=== PATIENT | male | born 1940 | race Caucasian/White ===

== ENCOUNTER 2019-01-22 17:34 | Inpatient (IN) ==
[2019-01-22] MEDS ORDERED: IPRATROPIUM/ALBUTEROL 3 ML AMPUL.NEB NEB ONE (17:55)
--- NOTE | 2019-01-22 17:59 | Emergency Department Note ---
SOB HPI - General Chief Complaint: Shortness of Breath/Dyspnea Stated Complaint: SOB Time Seen by Provider: 01/22/19 17:38 Source: patient Mode of arrival: ambulatory Limitations: no limitations - History of Present Illness 78-year-old male patient presents to the emergency department with chief complaint of worsening dyspnea, left-sided chest pain, and productive cough. The patient was diagnosed with pneumonia on Friday (01/19) at urgent care. He was treated with azithromycin, prednisone, albuterol inhaler, and cough suppressants. He is supposed to be taking his final dose of azithromycin today. Today, he tells me his symptoms have profoundly worsened since being diagnosed. He had fevers up until yesterday. He denies any sinus congestion, runny nose, ear pain. He has a past history of atrial fibrillation but denies history of [place]. He denies retrosternal chest pain, palpitations, orthopnea, or PND. He denies respiratory history. He denies smoking. He admits to abdominal bloating. He denies overt abdominal pain, nausea, vomiting, or diarrhea. He admits to fatigue. He denies focal weakness. - Related Data Home Medications Medication Instructions Recorded Confirmed diphenhydrAMINE [Benadryl] 25 mg PO PRN PRN 09/01/15 01/22/19 traZODone HCL [Desyrel] 50 mg PO HS 09/01/15 01/22/19 acetylcarnitine HCl 250 mg capsule 500 mg PO BID 05/05/18 01/22/19 arginine (L-arginine) 500 mg 500 mg PO HS cap 05/05/18 01/22/19 capsule clonidine HCl 0.2 mg tablet 0.2 mg PO BID 05/05/18 01/22/19 coenzyme Q10 30 mg-Lcarnitine 250 1 cap PO HS cap 05/05/18 01/22/19 mg-vit C 12 mg-vit E 75 unit capsule epinephrine 0.3 mg/0.3 mL 0.3 mg IM ONCE PRN 05/05/18 01/22/19 injection, auto-injector glutamine 500 mg capsule 500 mg PO HS cap 05/05/18 01/22/19 nitroglycerin 0.4 mg sublingual 0.4 mg SUBLINGUAL Q5-15M PRN 05/05/18 01/22/19 tablet oxybutynin chloride 5 mg tablet 10 mg PO QDAY tab 05/05/18 01/22/19 citalopram 10 mg tablet 30 mg PO QDAY tab 05/20/18 01/22/19 gemfibrozil 600 mg tablet 300 mg PO BID tab 05/20/18 01/22/19 verapamil ER 240 mg 24 hr 240 mg PO BID 05/20/18 01/22/19 capsule,extended release famotidine 20 mg tablet 20 mg PO DAILYP PRN 07/07/18 01/22/19 lorazepam 0.5 mg tablet 0.5 mg PO TIDP PRN 07/07/18 01/22/19 labetalol 200 mg tablet 100 mg PO BID tab 07/15/18 01/22/19 Ascorbate Calcium [Vitamin C] 500 mg PO BID 01/22/19 01/22/19 Cyanocobalamin (Vitamin B-12) 2,500 mcg PO QAM 01/22/19 01/22/19 [Vitamin B12] Folic Acid 0.4 mg PO QAM 01/22/19 01/22/19 Potassium Chloride 3 cap PO BID 01/22/19 01/22/19 levOCARNitine TARTRATE 500 mg PO QPM 01/22/19 01/22/19 [l-Carnitine] Previous Rx's Medication Instructions Recorded ferrous sulfate 325 mg (65 mg 325 mg PO QDAY #90 tab 10/26/18 iron) tablet azithromycin 250 mg tablet See Rx Instructions PO .COMPLEX #6 01/19/19 tab Allergies Allergy/AdvReac Type Severity Reaction Status Date / Time morphine Allergy Severe Unknown Verified 01/22/19 17:34 Terazosin [From Hytrin] Allergy Unknown Palps & Verified 01/22/19 17:34 skipped beat amlodipine [From Norvasc] Allergy Unknown Verified 01/22/19 17:34 benazepril Allergy Unknown Verified 01/22/19 17:34 bisoprolol [From Ziac] Allergy Unknown Verified 01/22/19 17:34 diltiazem [From Cardizem] Allergy Unknown Verified 01/22/19 17:34 hydrochlorothiazide Allergy Unknown Verified 01/22/19 17:34 [From Ziac] simvastatin [From Zocor] Allergy Unknown Verified 01/22/19 17:34 mytran Allergy Mild Unknown Uncoded 08/12/18 14:06 Review of Systems All systems ED: reviewed and negative except as stated. Past Medical History - Past Medical History Medical history: Reports: atrial fibrillation, hypertension Family history: Reports: non-contributory - Social History smoking status: Former smoker Alcohol use: Reports: None Drug use: Reports: none Physical Exam Limitations: no limitations General appearance: alert, anxious, in distress (tachypnea. Able to speak in full complete sentences.) Head: atraumatic, normocephalic Eye: Present: normal appearance, PERRL, EOMI. Absent: scleral icterus, conjunctival injection ENT: normal oropharynx, mucous membranes moist Neck: Present: trachea midline. Absent: lymphadenopathy, thyromegaly Chest: Present: symmetric chest wall rise Respiratory: Present: respiratory distress, wheezes (bilateral lower chest extending to mid chest.), other (rhonchi to both lower lobes. E to A changes in left chest). Absent: accessory muscle use Location: dullness to percussion: Left, Lower Cardiovascular: Present: regular rate, normal rhythm, other. Absent: systolic murmur, diastolic murmur Abdominal: Present: soft, distention, hyperactive bowel sounds. Absent: tende rness, guarding, rebound, rigidity, organomegaly, mass Extremities: Present: full ROM. Absent: pedal edema, pretibial edema, calf tenderness Neurological: Present: alert, oriented X3, normal gait Psychiatric: Present: normal affect, normal mood Skin: Present: warm, dry Course Course Narrative: Patient is brought into the emergency department and a history and physical exam was performed. An IV was established and laboratory studies were drawn. Chest x-ray and EKG were ordered. Peak flows were initiated showing a significant decrease to his lung capacity. He was given a DuoNeb treatment. Afterward the patient continued to complain of profound shortness of breath with any form of movement. His repeat lung exam did show clearing to the upper lobes. Continuing rhonchi at the bases. EKG was reviewed showing no significant ST segment changes or evidence of ischemia/infarction. Chest x-ray was reviewed by the radiologist showing worsening bilateral opacities consistent with pneumonia diagnosis. During this time the patient's blood pressure was noted to be profoundly elevated at 230/110. He admits to not taking any of his blood pressure medications today. He was given labetalol 20 mg slow IV push. Afterward repeat blood pressure testing showed ongoing HTN at 201/116. He was then given labetalol 40 mg slow IV push. Reviewing his chemistry panel showed elevated BUNs/creatinine with a GFR 29. He was given thousand milliliters no rmal saline bolus. He was also given 750 mg of Levaquin +1 g Rocephin IV for antibiotic coverage. Repeat blood pressure testing showed a slight improvement to 196/110. I spoke to the hospitalist (Dr. Stevenson) about the patient's condition and need for admission. After reviewing all the factors He requested a pro calcitonin and assured me he would be down shortly for evaluation. During this time his blood pressure continued to be elevated so a second dose of labetalol 40 mg slow IV push was provided. Repeat blood pressure measurement showed ongoing elevation. Although, the patient is acutely ill, he remained stable throughout his entire time in the emergency department. The patient is now going to be admitted to the hospitalist service under the care of Dr. Stevenson. Vital Signs Temperature 99.0 F 01/22/19 17:34 Pulse Rate 100 H 01/22/19 17:34 Respiratory Rate 22 01/22/19 17:34 Blood Pressure 220/124 01/22/19 17:34 Pulse Oximetry (%) 93 01/22/19 17:34 Temperature 99.0 F 01/22/19 17:34 Pulse Rate 80 01/22/19 19:31 Respiratory Rate 26 H 01/22/19 19:31 Blood Pressure 191/113 01/22/19 19:31 Pulse Oximetry (%) 97 01/22/19 19:31 Shortness of Breath/Dyspnea - Lab Data Lab results reviewed: Yes I reviewed the patient's lab results. Result diagrams: 01/22/19 18:04 01/22/19 18:03 Lab Results 01/22/19 01/22/19 01/22/19 Range/Units 18:00 18:03 18:04 WBC 10.5 (4.5-11.0) K/mcL RBC 4.47 L (4.50-5.90) M/mcL Hgb 13.4 L (13.5-16.5) g/dL Hct 40.5 L (41.0-55.0) % MCV 90.5 (80.0-100.0) fL MCH 29.9 (26.0-34.0) pg MCHC 33.0 (31.0-36.0) g/dL RDW 13.8 (11.5-14.5) % Plt Count 208 (140-440) K/mcL MPV 10.9 H (7.4-10.4) fL Gran % 81.3 H (38.0-78.0) % Lymph % (Auto) 10.0 L (15.5-49.0) % Blanco % (Auto) 8.5 (1.0-12.0) % Eos % (Auto) 0.1 (0.0-7.0) % Baso % (Auto) 0.1 (0.0-2.0) % Gran # 8.5 H (1.8-8.0) K/mcL Lymph # (Auto) 1.0 L (1.5-4.8) K/mcL Blanco # (Auto) 0.9 (0.1-0.9) K/mcL Eos # (Auto) 0 (0.0-0.7) K/mcL Baso # (Auto) 0 (0.0-0.3) K/mcL Band Neutrophils % VBG Lactic Acid 1.1 (0.5-2.0) mmol/L Sodium 138 (133-145) mmol/L Potassium 4.3 (3.3-5.1) mmol/L Chloride 100 (96-108) mmol/L Carbon Dioxide 23 (22-30) mmol/L Anion Gap 15.0 (8-16) BUN 27 H (8-23) mg/dl Creatinine 2.1 H (0.7-1.2) mg/dl GFR Calculation 29 Glucose 83 (70-105) mg/dL Calcium 9.1 (8.6-10.4) mg/dl Total Bilirubin 0.3 (0.0-1.0) mg/dL AST 26 (0-37) U/l ALT 11 (0-40) U/l Alkaline Phosphatase 112 (39-117) U/L Troponin T (0-0.03) ng/ml Total Protein 6.6 (5.9-8.4) gm/dL Albumin 3.6 (3.2-5.2) gm/dL Globulin 3.0 (2.2-3.7) gm/dL Albumin/Globulin Ratio 1.2 (1.0-2.3) 05/03/19 05/03/19 Range/Units 18:04 18:05 WBC (4.5-11.0) K/mcL RBC (4.50-5.90) M/mcL Hgb (13.5-16.5) g/dL Hct (41.0-55.0) % MCV (80.0-100.0) fL MCH (26.0-34.0) pg MCHC (31.0-36.0) g/dL RDW (11.5-14.5) % Plt Count (140-440) K/mcL MPV (7.4-10.4) fL Gran % (38.0-78.0) % Lymph % (Auto) (15.5-49.0) % Blanco % (Auto) (1.0-12.0) % Eos % (Auto) (0.0-7.0) % Baso % (Auto) (0.0-2.0) % Gran # (1.8-8.0) K/mcL Lymph # (Auto) (1.5-4.8) K/mcL Blanco # (Auto) (0.1-0.9) K/mcL Eos # (Auto) (0.0-0.7) K/mcL Baso # (Auto) (0.0-0.3) K/mcL Band Neutrophils % Not Reportable VBG Lactic Acid (0.5-2.0) mmol/L Sodium (133-145) mmol/L Potassium (3.3-5.1) mmol/L Chloride (96-108) mmol/L Carbon Dioxide (22-30) mmol/L Anion Gap (8-16) BUN (8-23) mg/dl Creatinine (0.7-1.2) mg/dl GFR Calculation Glucose (70-105) mg/dL Calcium (8.6-10.4) mg/dl Total Bilirubin (0.0-1.0) mg/dL AST (0-37) U/l ALT (0-40) U/l Alkaline Phosphatase (39-117) U/L Troponin T 0.03 (0-0.03) ng/ml Total Protein (5.9-8.4) gm/dL Albumin (3.2-5.2) gm/dL Globulin (2.2-3.7) gm/dL Albumin/Globulin Ratio (1.0-2.3) - Radiology Data Radiology results reviewed: Yes I reviewed the patient's radiology results. - EKG Data EKG attestation: Yes I reviewed and interpreted this EKG. EKG results narrative: Twelve-lead EKG obtained showing a sinus rhythm at 97 bpm. No ectopy. LVH present. No ectopy. No ST segment changes. Disposition Pt seen by ALARM INVESTIGATOR/PA only: No (Pipelines Superintendent) Clinical Impression: Community acquired pneumonia Qualifiers: Laterality: left Lung location: lower lobe of lung Qualified Code(s): J18.1 - Lobar pneumonia, unspecified organism Disposition: Xfer As Inpt ([facility]) Condition: Fair Additional Instructions: Patient is being admitted to the hospital under the care of Dr. Stevenson (hospitalist). All follow on treatment decisions will be made by the hospitalist service at this time. Referrals: Estevan Carter MD [Primary Care Provider] - Time of Disposition: 20:39
--- NOTE | 2019-01-22 18:23 | XRay Report ---
INDICATION: Pneumonia TECHNIQUE: PA and lateral upright chest x-ray COMPARISON: Previous chest x-rays dated 04/11/2016 and 01/19/2019 FINDINGS:There are bilateral pulmonary parenchymal infiltrates which are worse than on 01/19/2019. Is no dense consolidation. Appearance remains consistent with pneumonia. Findings are not typical of congestive heart failure. There is no pleural fluid. No change in heart size. IMPRESSION: 1. Increasing bilateral pulmonary parenchymal infiltrates. 2. Findings are consistent with pneumonia Interpreted and Authenticated by: Danyel Gorman 01/22/19
[2019-01-22] MEDS ORDERED: LABETALOL 5 MG/ML ML IV ONE ×4 (18:30→21:10)
[2019-01-22 18:40] LABS: Basophils # (Auto) 0 K/mcL (0.0-0.3); Basophils % (Auto) 0.1 % (0.0-2.0); Eosinophils # (Auto) 0 K/mcL (0.0-0.7); Eosinophils % (Auto) 0.1 % (0.0-7.0); Granulocytes % (Auto) 81.3 % (38.0-78.0); Mean Cell Volume 90.5 fL (80.0-100.0); Monocytes # (Auto) 0.9 K/mcL (0.1-0.9); Monocytes % (Auto) 8.5 % (1.0-12.0); Platelet Count 208 K/mcL (140-440); RBC 4.47 M/mcL (4.50-5.90); Red Cell Distribution Width 13.8 % (11.5-14.5)
[2019-01-22] MEDS ORDERED: LEVOFLOXACIN 750 MG/150 ML BAG IV ONE (18:54)
[2019-01-22] MEDS ORDERED: cefTRIAXone 1 GM VIAL IV ONE (18:54)
[2019-01-22 19:02] LABS: ALT/SGPT 11 U/l (0-40); Albumin 3.6 gm/dL (3.2-5.2); Albumin/Globulin Ratio 1.2 (1.0-2.3); Alkaline Phosphatase 112 U/L (39-117); Blood Urea Nitrogen 27 mg/dl (8-23)
[2019-01-22] MEDS ORDERED: 0.9 % SODIUM CHLORIDE 1,000 ML IV ONE (19:10)
--- NOTE | 2019-01-22 20:22 | Internal Med History&Physical ---
Medical - H&P: HPI Patient information: Note initiated : 01/22/19 at 8:17 pm Service Date, if different from initiated Date: [] Patient: Kaden Romero a 78 y/o M admitted on for Shortness of breath. Chief Complaint: [] History of present illness: Mr. Romero is a 78 year old M Presents to the ED with continued cough and shortness of breath. Patient was seen in minor care on the and diagnosed with left-sided pneu monia and was given azithromycin and prednisone bronchodilators. He states that it took a couple days and then he started to feel better. However, last night he started having increased cough again with increased shortness of breath and was very short of breath this morning. Patient says he had sick contacts about a week ago. The symptoms that brought him into the minor care included shortness of breath pleuritic chest pain on the left side both with coughing and with deep breathing. He had productive cough of yellow sputum any fevers or chills. As per his admission the symptoms started improve and then the symptoms got dramatically worse last night. His says he has a wheezy cough as well as productive. He feels very weak. Feels like he cannot take a deep breath because of the pleuritic chest pain. Has a headache as well. Opponent and EKG done in the ED without any acute changes. Chest x-ray with infiltrates interstitial concerning for pneumonia. No effusions or heart enlargement. He is found to be quite hypertensive with systolic of 220/120. He states he did not take his labetalol this morning because his heart rate was running fast and he thought labetalol made it worse. He did take his verapamil and was clonidine. He states he does have a history of atrial fibrillation and is on verapamil but is never been talked about anticoagulation. He is in sinus rhythm here. He says the breathing treatments in the ED gave him only a little bit of improvement. ABG showed a PaO2 of 50. Lactate was okay. No history of COPD. Review of Systems: Pertinent positives as above. Denies nausea/vomiting/abdominal pain/diarrhea. Remaining 10 point review of system reviewed negative Medical - H&P: PMH Medical history: Medical History (Last Reviewed 01/19/19 @ 12:47 by Miguel Thorpe PA-C) Personal history of other diseases of the circulatory system (Chronic) Internal hemorrhoids with complication (Chronic) Urge incontinence (Chronic) Chronic foot pain (Chronic) Peripheral edema (Chronic) Depression (Chronic) Seborrheic keratosis (Chronic) Lentigo (Chronic) Hemangioma (Chronic) Actinic keratosis (Chronic) Seborrheic dermatitis (Chronic) Atopic dermatitis (Chronic) History of tobacco use (Chronic) Arthritis (Chronic) Restless leg syndrome (Chronic) Other instability, left ankle (Chronic) Other instability, right ankle (Chronic) Other instability, right foot (Chronic) Male urinary stress incontinence (Chronic) Balanitis (Chronic) Prostate CA (Chronic) Hyperlipidemia (Chronic) Edema (Chronic) History of adenocarcinoma of prostate (Chronic) Palpitations (Chronic) Paroxysmal supraventricular tachycardia (Chronic) Hypertensive heart disease (Chronic) Hypertension (Chronic) Chest discomfort (Chronic) Dissection of aortic arch (Chronic) Dehiscence of incision (Acute) History of EKG (Chronic ~03/03/18) History of echocardiogram (Chronic ~2009) History of melanoma (Chronic) History of skin cancer (Chronic) Past Surgical History (Last Reviewed 01/19/19 @ 12:47 by Miguel Thorpe PA-C) H/O left inguinal hernia repair (Chronic) H/O radical prostatectomy (Chronic ~2008) History of prostatectomy (Chronic) Family History (Last Reviewed 01/19/19 @ 12:47 by Miguel Thorpe PA-C) Father CAD (coronary artery disease) Mother CAD (coronary artery disease) Brother No known health problems Brother Cancer Sister CVA (cerebral vascular accident) Sister Cancer Sister No known health problems Social History (Last Updated 01/19/19 @ 12:51 by Miguel Thorpe PA-C) Quit smoking in the early Drinks alcohol rarely Lives at home with his Medical - H&P: Meds Home Medications Medication Instructions Recorded Confirmed Type diphenhydrAMINE [Benadryl] 25 mg PO PRN PRN 09/01/15 01/22/19 History traZODone HCL [Desyrel] 50 mg PO HS 09/01/15 01/22/19 History acetylcarnitine HCl 250 mg capsule 500 mg PO BID 05/05/18 01/22/19 History arginine (L-arginine) 500 mg 500 mg PO HS cap 05/05/18 01/22/19 History capsule clonidine HCl 0.2 mg tablet 0.2 mg PO BID 05/05/18 01/22/19 History coenzyme Q10 30 mg-Lcarnitine 250 1 cap PO HS cap 05/05/18 01/22/19 History mg-vit C 12 mg-vit E 75 unit capsule epinephrine 0.3 mg/0.3 mL 0.3 mg IM ONCE PRN 05/05/18 01/22/19 History injection, auto-injector glutamine 500 mg capsule 500 mg PO HS cap 05/05/18 01/22/19 History nitroglycerin 0.4 mg sublingual 0.4 mg SUBLINGUAL Q5-15M PRN 05/05/18 01/22/19 History tablet oxybutynin chloride 5 mg tablet 10 mg PO QDAY tab 05/05/18 01/22/19 History citalopram 10 mg tablet 30 mg PO QDAY tab 05/20/18 01/22/19 History gemfibrozil 600 mg tablet 300 mg PO BID tab 05/20/18 01/22/19 History verapamil ER 240 mg 24 hr 240 mg PO BID 05/20/18 01/22/19 History capsule,extended release famotidine 20 mg tablet 20 mg PO DAILYP PRN 07/07/18 01/22/19 History lorazepam 0.5 mg tablet 0.5 mg PO TIDP PRN 07/07/18 01/22/19 History labetalol 200 mg tablet 100 mg PO BID tab 07/15/18 01/22/19 History ferrous sulfate 325 mg (65 mg 325 mg PO QDAY #90 tab 10/26/18 01/22/19 Rx iron) tablet azithromycin 250 mg tablet See Rx Instructions PO .COMPLEX #6 01/19/19 01/22/19 Rx tab Ascorbate Calcium [Vitamin C] 500 mg PO BID 01/22/19 01/22/19 History Cyanocobalamin (Vitamin B-12) 2,500 mcg PO QAM 01/22/19 01/22/19 History [Vitamin B12] Folic Acid 0.4 mg PO QAM 01/22/19 01/22/19 History Potassium Chloride 3 cap PO BID 01/22/19 01/22/19 History levOCARNitine TARTRATE 500 mg PO QPM 01/22/19 01/22/19 History [l-Carnitine] Allergies Allergy/AdvReac Type Severity Reaction Status Date / Time morphine Allergy Severe Unknown Verified 01/22/19 17:34 Terazosin [From Hytrin] Allergy Unknown Palps & Verified 01/22/19 17:34 skipped beat amlodipine [From Norvasc] Allergy Unknown Verified 01/22/19 17:34 benazepril Allergy Unknown Verified 01/22/19 17:34 bisoprolol [From Ziac] Allergy Unknown Verified 01/22/19 17:34 diltiazem [From Cardizem] Allergy Unknown Verified 01/22/19 17:34 hydrochlorothiazide Allergy Unknown Verified 01/22/19 17:34 [From Ziac] simvastatin [From Zocor] Allergy Unknown Verified 01/22/19 17:34 mytran Allergy Mild Unknown Uncoded 08/12/18 14:06 Medical - H&P: Exam - Constitutional Vitals: Temp Pulse Resp BP Pulse Ox 99.0 F 80 26 H 191/113 97 01/22/19 17:34 01/22/19 19:31 01/22/19 19:31 01/22/19 19:31 01/22/19 19:31 Exam: General: Alert, Awake, No acute Distress Eyes/N/T: EOMI, PEERL, DMM Head/Neck: neck supple, normocephalic atraumatic CV: RRR, 2/6 SM Pulm: b/l rhonchi, mild bilateral wheeze Abd: soft, nontender, +BS x4 Ext: no clubbing/cyanosis, trace-1+ b/l LE edema Neuro: Alert, no focal deficits, moves all extremities, CN 2-12 grossly intact, symmetrical strength b/l upper/lower, sensations intact b/l upper/lower Skin: warm/dry Medical - H&P: Reslt - Labs CBC & Chem 7: 01/22/19 18:04 01/22/19 18:03 Labs: Short CBC 01/22/19 Range/Units 18:04 WBC 10.5 (4.5-11.0) K/mcL Hgb 13.4 L (13.5-16.5) g/dL Hct 40.5 L (41.0-55.0) % Plt Count 208 (140-440) K/mcL BMP 01/22/19 18:03 Sodium 138 Potassium 4.3 Chloride 100 Carbon Dioxide 23 BUN 27 H Creatinine 2.1 H Glucose 83 Calcium 9.1 Cardiac Enzymes 01/22/19 Range/Units 18:04 Troponin T 0.03 (0-0.03) ng/ml Liver Function 01/22/19 Range/Units 18:03 Total Bilirubin 0.3 (0.0-1.0) mg/dL AST 26 (0-37) U/l ALT 11 (0-40) U/l Alkaline Phosphatase 112 (39-117) U/L Albumin 3.6 (3.2-5.2) gm/dL - Impressions Chest x-ray with interstitial infiltrates Medical - H&P: A/P - Narrative A/P Narrative: A: *Pneumonia, atypical: Failed outpatient abx -mild bandemia *Acute hypoxic respiratory failure: *Hypertensive urgency: Did miss one of his blood pressure medications today -home meds include labetalol/clonidine/verapamil *CKD IIIb-IV: * *Depression/anxiety: *GERD: * P: -IV abx -pending SC -pending Myco/Strep/resp viral panel -cont home BP meds and prn IV -prn nebs, prednisone -MRSA screen - -pt/ot -ppx: Heparin Full code
[2019-01-22 20:34] LABS: Band Neutrophils % 12 % (0-10); Lymphocytes % 12 % (15-49); Monocytes % (Manual) 6 % (1-12); Platelet Estimate NORMAL (NORMAL); RBC Morphology NORMAL (NORMAL); Segmented Neutrophils % 69 % (38-78)
[2019-01-22] MEDS ORDERED: VERAPAMIL 120 MG TAB.XL.24H PO SCH (21:00)
[2019-01-22] MEDS ORDERED: IPRATROPIUM/ALBUTEROL 3 ML AMPUL.NEB NEB PRN (21:10)
[2019-01-22] MEDS ORDERED: NITROGLYCERIN 0.4 MG TAB.SUBL SL PRN (21:10)
[2019-01-22] MEDS ORDERED: METOCLOPRAMIDE 10 MG/2 ML VIAL IV PRN (21:10)
[2019-01-22] MEDS ORDERED: [UNRECOGNIZED DRUG - OTHER] PO SCH (21:10)
[2019-01-22] MEDS ORDERED: cloNIDine HCL 0.1 MG TABLET PO PRN (21:10)
[2019-01-22] MEDS ORDERED: LACTULOSE 20 GM/30 ML ORAL.SOL PO PRN (21:10)
[2019-01-22] MEDS ORDERED: POLYETHYLENE GLYCOL 3350 17 GM PACKET PO PRN (21:10)
[2019-01-22] MEDS ORDERED: PROMETHAZINE 25 MG TABLET PO PRN (21:10)
[2019-01-22] MEDS ORDERED: diphenhydrAMINE 25 MG CAPSULE PO PRN (21:10)
[2019-01-22] MEDS ORDERED: POTASSIUM CHLORIDE 20 MEQ TABLET PO PRN ×2 (21:10)
[2019-01-22] MEDS ORDERED: ARGININE 500 MG PO SCH (21:10)
[2019-01-22] MEDS ORDERED: POTASSIUM CHLORIDE 40 MEQ in DEXTROSE 5% IN WATER 500 ML IV PRN (21:10)
[2019-01-22] MEDS ORDERED: SENNOSIDES 1 TABLET PO PRN (21:10)
[2019-01-22] MEDS ORDERED: MAGNESIUM SULFATE 2 GM/50 ML BAG IV PRN (21:10)
[2019-01-22] MEDS ORDERED: ONDANSETRON 4 MG/2 ML VIAL IV PRN (21:10)
[2019-01-22] MEDS: DOCUSATE SODIUM 100 MG CAPSULE PO SCH (22:06)
[2019-01-22] MEDS: cloNIDine HCL 0.1 MG TABLET PO SCH (22:06)
[2019-01-22] MEDS: GEMFIBROZIL 600 MG TABLET PO SCH (22:06)
[2019-01-22] MEDS: LABETALOL 100 MG TABLET PO SCH (22:06)
[2019-01-22] MEDS: LORazepam 0.5 MG TABLET PO PRN (22:07)
[2019-01-22] MEDS: FAMOTIDINE 20 MG TABLET PO SCH (22:07)
[2019-01-22] MEDS: traZODone HCL 50 MG TABLET PO SCH (22:07)
[2019-01-22] MEDS: predniSONE 20 MG TABLET PO SCH (22:09)
[2019-01-22] MEDS: 0.9 % SODIUM CHLORIDE 10 ML SYRINGE IV SCH (22:19)
[2019-01-22 22:33] LABS: Appearance,Urine CLEAR; Bacteria,Urine 0 /hpf (0); Bilirubin,Urine NEG (NEG); Color,Urine YELLOW; Glucose,Urine (UA) NEGATIVE (NEG); Leukocyte Esterase,Urine NEG /uL (NEG); Protein,Urine 100 mg/dL (NEG); Specific Gravity,Urine 1.013 (1.000-1.035); Urine Blood NEG mg/dL (<0.03); Urine Hyaline Cast 1 /lpf (0-2); Urine RBC < 1 /hpf (0-1); Urine Squamous Epithelial Cell < 1 /hpf (0-4); Urine WBC < 1 /hpf (0-4); Urobilinogen,Urine NEG (NEG)
[2019-01-23] MEDS: ACETAMINOPHEN 325 MG TABLET PO PRN ×3 (00:47→18:22)
[2019-01-23 05:41] LABS: Basophils # (Auto) 0 K/mcL (0.0-0.3); Basophils % (Auto) 0 % (0.0-2.0); Eosinophils # (Auto) 0 K/mcL (0.0-0.7); Eosinophils % (Auto) 0 % (0.0-7.0); Granulocytes % (Auto) 89.8 % (38.0-78.0); Lymphocytes # (Auto) 0.5 K/mcL (1.5-4.8); Lymphocytes % (Auto) 6.8 % (15.5-49.0); Mean Cell Volume 89.9 fL (80.0-100.0); Mean Corpuscular HGB Conc 33.6 g/dL (31.0-36.0); Monocytes # (Auto) 0.3 K/mcL (0.1-0.9); Monocytes % (Auto) 3.4 % (1.0-12.0); Platelet Count 171 K/mcL (140-440); RBC 3.87 M/mcL (4.50-5.90); Red Cell Distribution Width 13.7 % (11.5-14.5)
[2019-01-23] MEDS: 0.9 % SODIUM CHLORIDE 10 ML SYRINGE IV SCH ×3 (05:43→21:39)
[2019-01-23 05:52] LABS: ALT/SGPT 9 U/l (0-40); Albumin/Globulin Ratio 1.2 (1.0-2.3); Alkaline Phosphatase 95 U/L (39-117); Bilirubin,Direct < 0.2 mg/dL (0.0-0.3); Blood Urea Nitrogen 29 mg/dl (8-23); Gamma Glutamyl Transpeptidase 21 U/L (8-61); Uric Acid 5.6 mg/dL (2.5-8.0)
--- NOTE | 2019-01-23 07:50 | Emergency Department Note ---
ED Note Addendum Note Addendum: I discussed this case with the mid-level provider and agree with the assessment and plan.
--- NOTE | 2019-01-23 08:06 | Internal Med Progress Note ---
Medical - PN: Subj Patient information: Note initiated : 01/23/19 at 7:58 am Service Date, if different from initiated Date: [] Patient: Kaden Romero 78 y/o M admitted on 01/22/19 for Shortness of breath. Chief Complaint: [] Interval history: Mr. Romero is a 78 year old M Presents to the ED with continued cough and shortness of breath. Patient was seen in minor care on the and diagnosed with left-sided pneum onia and was given azithromycin and prednisone bronchodilators. He states that it took a couple days and then he started to feel better. However, last night he started having increased cough again with increased shortness of breath and was very short of breath this morning. Patient says he had sick contacts about a week ago. The symptoms that brought him into the minor care included shortness of breath pleuritic chest pain on the left side both with coughing and with deep breathing. He had productive cough of yellow sputum any fevers or chills. As per his admission the symptoms started improve and then the symptoms got dramatically worse last night. His says he has a wheezy cough as well as productive. He feels very weak. Feels like he cannot take a deep breath because of the pleuritic chest pain. Has a headache as well. Opponent and EKG done in the ED without any acute changes. Chest x-ray with infiltrates interstitial concerning for pneumonia. No effusions or heart enlargement. He is found to be quite hypertensive with systolic of 220/120. He states he did not take his labetalol this morning because his heart rate was running fast and he thought labetalol made it worse. He did take his verapamil and was clonidine. He states he does have a history of atrial fibrillation and is on verapamil but is never been talked about anticoagulation. He is in sinus rhythm here. He says the breathing treatments in the ED gave him only a little bit of improvement. ABG showed a PaO2 of 50. Lactate was okay. No history of COPD. 01/23 Patient had a difficult time getting to sleep because of cough but eventually fell asleep and slept well. Feeling better today. Less shortness of breath and improved cough. Pleuritic chest pain improving. No new complaints. Review of Systems: denies headache/fever/chills/nausea/vomiting/abdominal pain/diarrhea. Otherwise see above. - Constitutional Vitals: Vital Signs Temp Pulse Resp BP Pulse Ox 98.8 F 80 17 140/71 93 01/23/19 03:55 01/22/19 20:55 01/23/19 03:55 01/23/19 03:55 01/23/19 03:55 Period Temp Pulse Resp BP Sys/Thacker Pulse Ox Last 24 Hr 98.2 F-99.0 F 79-101 17-34 140-230/71-149 91-98 Intake and Output 01/22/19 01/23/19 01/23/19 21:59 05:59 13:59 Intake Total 1510 Output Total 200 426 Balance 1310 -426 Weight 87.317 kg Intake & Output: Intake & Output 01/22/19 01/23/19 01/23/19 21:59 05:59 13:59 Intake Total 1510 Output Total 200 426 Balance 1310 -426 Weight 87.317 kg Intake: IV 1150 Sodium Chloride 0.9% 1,000 ml @ 1000 Wide Open IV BOLUS ONE Rx#: [id number] Oral 360 Output: Void Amount 200 425 # of times incontinent of urine 1 Other: Meal deion crackers & apple sauce Percent of Meal Consumed 100% Feeding Ability Independent Urine Appearance Clear Urine Color Bright Yellow Exam: General: Alert, Awake, No acute Distress Eyes/N/T: EOMI, Head/Neck: neck supple, CV: RRR, 2/6 SM Pulm: b/l rhonchi improving, no wheezing Abd: soft, nontender, +BS x4 Ext: no clubbing/cyanosis, trace-1+ b/l LE edema Neuro: Alert, no focal deficits, moves all extremities, Skin: warm/dry Medical - PN: Obj Da - Labs CBC & Chem 7: 01/23/19 04:25 01/23/19 04:25 Labs: Abnormal Lab Results 01/23/19 01/23/19 01/22/19 04:25 04:25 21:45 RBC 3.87 L Hgb 11.7 L Hct 34.8 L MPV 10.8 H Gran % 89.8 H Lymph % (Auto) 6.8 L Gran # Lymph # (Auto) 0.5 L Band Neutrophils % Lymphocytes % BUN 29 H Creatinine 2.1 H Glucose 112 H Calcium 8.2 L Lactate Dehydrogenase 256 H C-Reactive Protein Total Protein 5.6 L Albumin 3.0 L Urine Protein 100 A 01/22/19 01/22/19 01/22/19 18:05 18:04 18:03 RBC 4.47 L Hgb 13.4 L Hct 40.5 L MPV 10.9 H Gran % 81.3 H Lymph % (Auto) 10.0 L Gran # 8.5 H Lymph # (Auto) 1.0 L Band Neutrophils % 12 H Lymphocytes % 12 L BUN Creatinine Glucose Calcium Lactate Dehydrogenase C-Reactive Protein 2.5 H Total Protein Albumin Urine Protein 01/22/19 18:03 RBC Hgb Hct MPV Gran % Lymph % (Auto) Gran # Lymph # (Auto) Band Neutrophils % Lymphocytes % BUN 27 H Creatinine 2.1 H Glucose Calcium Lactate Dehydrogenase C-Reactive Protein Total Protein Albumin Urine Protein Meds: Medications Acetaminophen (Tylenol) 650 mg PO Q6HP PRN PRN Reason: PAIN/FEVER > 101 Last Admin: 01/23/19 00:47 Dose: 650 mg Documented by: Albuterol/Ipratropium (Duoneb) 3 ml NEB Q4HP PRN PRN Reason: Shortness Of Breath Citalopram Hydrobromide (Celexa) 20 mg PO DAILY [facility] Clonidine HCl (Catapres) 0.1 mg PO Q8HP PRN PRN Reason: Hypertension SBP>150 Clonidine HCl (Catapres) 0.2 mg PO BID [facility] Last Admin: 01/22/19 22:06 Dose: 0.2 mg Documented by: Diphenhydramine HCl (Benadryl) 25 mg PO PRN PRN PRN Reason: Allergic Reaction Docusate Sodium (Colace) 100 mg PO BID [facility] Last Admin: 01/22/19 22:06 Dose: Not Given Documented by: Famotidine (Pepcid) 20 mg PO HS [facility] Last Admin: 01/22/19 22:07 Dose: 20 mg Documented by: Gemfibrozil (Lopid) 150 mg PO BID [facility] Last Admin: 01/22/19 22:06 Dose: 150 mg Documented by: Heparin Sodium (Porcine) (Heparin) 5,000 unit SQ Q12 [facility] Hydralazine HCl (Apresoline) 0 mg IV Q4-6HP PRN PRN Reason: Hypertension Potassium Chloride 40 meq/ (Dextrose) 520 mls @ 130 mls/hr IV UD PRN PRN Reason: Potassium < 3 Levofloxacin (Levaquin) 750 mg in 150 mls @ 100 mls/hr IV Q48H [facility]; Protocol Magnesium Sulfate (Magnesium Sulfate) 2 gm in 50 mls @ 50 mls/hr IV UD PRN PRN Reason: Magnesium </= 1.6 Labetalol HCl (Trandate) 100 mg PO BID [facility] Last Admin: 01/22/19 22:06 Dose: 100 mg Documented by: Labetalol HCl (Trandate) 0 mg IV Q2HP PRN PRN Reason: INCREASED HEART RATE Lactulose (Cephulac) 10 gm PO DAILYP PRN PRN Reason: Constipation Lorazepam (Ativan) 0.5 mg PO TIDP PRN PRN Reason: Anxiety Last Admin: 01/22/19 22:07 Dose: 0.5 mg Documented by: Nitroglycerin (Nitrostat) 0.4 mg SL Q15MIN PRN PRN Reason: Chest Pain Ondansetron HCl (Zofran) 4 mg IV Q4HP PRN PRN Reason: Nausea And Vomiting Oxybutynin Chloride (Ditropan) 10 mg PO QDAY [facility] Polyethylene Glycol (Miralax) 17 gm PO DAILYP PRN PRN Reason: Constipation Potassium Chloride (Kdur) 40 meq PO UD PRN PRN Reason: Potssium is 3-3.5 Potassium Chloride (Kdur) 40 meq PO UD PRN PRN Reason: Potassium < 3 Prednisone (Prednisone) 40 mg PO [facility] Stop: 01/26/19 08:01 Last Admin: 01/22/19 22:09 Dose: 40 mg Documented by: Promethazine HCl (Phenergan) 0 mg PO Q6HP PRN PRN Reason: Nausea And Vomiting Senna (Senokot) 2 tab PO HSP PRN PRN Reason: Constipation Sodium Chloride (Saline Flush) 10 ml IV Q8 [facility] Last Admin: 01/23/19 05:43 Dose: 10 ml Documented by: Trazodone HCl (Desyrel) 50 mg PO [facility] Last Admin: 01/22/19 22:07 Dose: 50 mg Documented by: Verapamil HCl (Calan Sr) 240 mg PO [facility] Last Admin: 01/22/19 22:05 Dose: 240 mg Documented by: Verapamil HCl (Calan Sr) 120 mg PO DAILY [facility] Medical - PN: A/P - Time Spent With Patient Total time spent is greater than 50% in coordination of care (as documented) at patient's floor/unit and/or counseling patient: - Narrative A/P Narrative: A: *Pneumonia, atypical vs likely Viral PNA: Failed outpatient abx. (+) Human Metapneumovirus -mild bandemia -myco/strep neg *Acute hypoxic respiratory failure: -on 2L NC *Hypertensive urgency: Did miss one of his blood pressure medications today -home meds include labetalol/clonidine/verapamil *CKD IIIb-IV: *Depression/anxiety: *GERD: * P: -IV abx, pending SC -wean off/down O2 -IS/Acapella, prn nebs -prednisone -cont home BP meds and prn IV - -pt/ot -ppx: Heparin Full code Medical - PN: Qual - VTE Deep Vein Thrombosis/Pulmonary Embolism Present on Admission: No
[2019-01-23] MEDS: predniSONE 20 MG TABLET PO SCH (08:19)
[2019-01-23] MEDS: DOCUSATE SODIUM 100 MG CAPSULE PO SCH ×2 (08:19→21:33)
[2019-01-23] MEDS: LABETALOL 100 MG TABLET PO SCH (08:19)
[2019-01-23] MEDS: cloNIDine HCL 0.1 MG TABLET PO SCH ×2 (08:23→21:34)
[2019-01-23] MEDS: CITALOPRAM 20 MG TABLET PO SCH (08:24)
[2019-01-23] MEDS: GEMFIBROZIL 600 MG TABLET PO SCH ×2 (08:25→21:31)
[2019-01-23] MEDS: HEPARIN 5,000 UNIT/ML VIAL SQ SCH ×2 (08:25→21:33)
[2019-01-23] MEDS: hydrALAZINE 20 MG/ML VIAL IV PRN ×2 (08:30→16:50)
[2019-01-23] MEDS ORDERED: VERAPAMIL 120 MG TAB.XL.24H PO SCH (09:00)
[2019-01-23] MEDS ORDERED: VERAPAMIL 120 MG TAB.XL.24H PO ONE (10:15)
[2019-01-23] MEDS ORDERED: LABETALOL 100 MG TABLET PO ONE (10:15)
[2019-01-23] MEDS: OXYBUTYNIN CHLORIDE 5 MG TAB.XL.24H PO SCH (10:53)
[2019-01-23] MEDS: LORazepam 0.5 MG TABLET PO PRN (18:34)
[2019-01-23] MEDS ORDERED: CALCIUM CARBONATE 500 MG TAB.CHEW CHEWED PRN (18:46)
[2019-01-23] MEDS ORDERED: PHENobarb/HYOSCY/ATROPINE/SCOP 1 DOSE BOTTLE PO ONE (18:47)
[2019-01-23] MEDS ORDERED: LABETALOL 100 MG TABLET PO SCH (21:00)
[2019-01-23] MEDS: traZODone HCL 50 MG TABLET PO SCH (21:33)
[2019-01-23] MEDS: FAMOTIDINE 20 MG TABLET PO SCH (21:34)
[2019-01-24] MEDS: hydrALAZINE 20 MG/ML VIAL IV PRN ×3 (00:47→07:01)
[2019-01-24] MEDS: LABETALOL 5 MG/ML ML IV PRN ×3 (02:50→16:14)
[2019-01-24 05:12] LABS: Mean Cell Volume 90.1 fL (80.0-100.0); Mean Corpuscular HGB Conc 33.6 g/dL (31.0-36.0); Platelet Count 179 K/mcL (140-440); RBC 3.69 M/mcL (4.50-5.90); Red Cell Distribution Width 13.7 % (11.5-14.5)
[2019-01-24 05:28] LABS: ALT/SGPT 10 U/l (0-40); Albumin 2.8 gm/dL (3.2-5.2); Albumin/Globulin Ratio 1.2 (1.0-2.3); Alkaline Phosphatase 79 U/L (39-117); Bilirubin,Direct < 0.2 mg/dL (0.0-0.3); Blood Urea Nitrogen 39 mg/dl (8-23); Gamma Glutamyl Transpeptidase 20 U/L (8-61); Uric Acid 6.4 mg/dL (2.5-8.0)
[2019-01-24] MEDS: 0.9 % SODIUM CHLORIDE 10 ML SYRINGE IV SCH ×2 (05:36→16:11)
[2019-01-24 06:09] LABS: Lymphocytes % 9 % (15-49); Monocytes % (Manual) 5 % (1-12); Platelet Estimate NORMAL (NORMAL); RBC Morphology NORMAL (NORMAL); Segmented Neutrophils % 86 % (38-78)
[2019-01-24] MEDS: LORazepam 0.5 MG TABLET PO PRN (06:30)
[2019-01-24] MEDS: ACETAMINOPHEN 325 MG TABLET PO PRN (06:30)
--- NOTE | 2019-01-24 06:33 | XRay Report ---
INDICATION: Follow-up pneumonia TECHNIQUE: AP chest x-ray,portable semiupright COMPARISON: Previous examinations dated 01/22/2019 and 01/19/2019 FINDINGS:Bilateral pulmonary parenchymal infiltrates. Infiltrates are diffuse. These are more diffuse than on previous examinations. No focal consolidation. Findings are consistent with pneumonia. Atypical pneumonia should be considered There is mild cardiomegaly. Pulmonary vascularity is not distended apical redistribution to indicate pulmonary congestion and pulmonary edema. Infiltrates are probably secondary to pneumonia. Clinical correlation and continued follow-up recommended. No evidence for pleural effusion IMPRESSION: 1. Diffuse pulmonary parenchymal infiltrates consistent with pneumonia 2. Mild cardiomegaly Interpreted and Authenticated by: Danyel Groman 01/24/19
--- NOTE | 2019-01-24 07:44 | Internal Med Progress Note ---
Medical - PN: Subj Patient information: Note initiated : 01/24/19 at 7:36 am Service Date, if different from initiated Date: [] Patient: Kaden Romero 78 y/o M admitted on 01/22/19 for Shortness of breath. Chief Complaint: [] Interval history: Mr. Romero is a 78 year old M Presents to the ED with continued cough and shortness of breath. Patient was seen in minor care on the and diagnosed with left-sided pneum onia and was given azithromycin and prednisone bronchodilators. He states that it took a couple days and then he started to feel better. However, last night he started having increased cough again with increased shortness of breath and was very short of breath this morning. Patient says he had sick contacts about a week ago. The symptoms that brought him into the minor care included shortness of breath pleuritic chest pain on the left side both with coughing and with deep breathing. He had productive cough of yellow sputum any fevers or chills. As per his admission the symptoms started improve and then the symptoms got dramatically worse last night. His says he has a wheezy cough as well as productive. He feels very weak. Feels like he cannot take a deep breath because of the pleuritic chest pain. Has a headache as well. Opponent and EKG done in the ED without any acute changes. Chest x-ray with infiltrates interstitial concerning for pneumonia. No effusions or heart enlargement. He is found to be quite hypertensive with systolic of 220/120. He states he did not take his labetalol this morning because his heart rate was running fast and he thought labetalol made it worse. He did take his verapamil and was clonidine. He states he does have a history of atrial fibrillation and is on verapamil but is never been talked about anticoagulation. He is in sinus rhythm here. He says the breathing treatments in the ED gave him only a little bit of improvement. ABG showed a PaO2 of 50. Lactate was okay. No history of COPD. 5/4 Patient had a difficult time getting to sleep because of cough but eventually fell asleep and slept well. Feeling better today. Less shortness of breath and improved cough. Pleuritic chest pain improving. No new complaints. 5/5 Left arm and off throughout the night. Mild headache this morning. Extremely anxious person. Blood pleasure overall improved still elevated, adjusting blood pressure medications. No bandemia today. Minimal cough, denies dyspnea at rest. Nurse noted old notes of prior visits to hospital with high BP's as well. Pt states home SBP 140's. Likely anxiety component, but also question what home BP is at. Review of Systems: denies fever/chills/nausea/vomiting/abdominal pain/diarrhea. Otherwise see above. - Constitutional Vitals: Vital Signs Temp Pulse Resp BP Pulse Ox 98.2 F 80 16 172/86 95 01/24/19 04:19 01/24/19 02:50 01/24/19 04:19 01/24/19 06:29 01/24/19 04:19 Period Temp Pulse Resp BP Sys/Thacker Pulse Ox Last 24 Hr 97.6 F-98.6 F 79-83 12-20 132-179/71-102 95-96 Intake and Output 01/23/19 01/24/19 01/24/19 21:59 05:59 13:59 Intake Total 1180 200 Output Total 300 925 250 Balance 880 -725 -250 Weight 87.997 kg Intake & Output: Intake & Output 01/23/19 01/24/19 01/24/19 21:59 05:59 13:59 Intake Total 1180 200 Output Total 300 925 250 Balance 880 -725 -250 Weight 87.997 kg Intake: Oral 1180 200 Output: Void Amount 300 925 250 Other: Meal Dinner Percent of Meal Consumed 100% Urine Appearance Clear Clear Urine Color Straw Straw Exam: General: Alert, Awake, Anxious Eyes/N/T: EOMI, Head/Neck: neck supple, CV: RRR, 2/6 SM Pulm: b/l rhonchi, no wheezing Abd: soft, nontender, +BS x4 Ext: no clubbing/cyanosis, trace b/l LE edema Neuro: Alert, no focal deficits, moves all extremities, Skin: warm/dry Medical - PN: Obj Da - Labs CBC & Chem 7: 01/24/19 04:08 01/24/19 04:08 Labs: Abnormal Lab Results 01/24/19 01/24/19 01/23/19 04:08 04:08 04:25 RBC 3.69 L Hgb 11.2 L Hct 33.2 L MPV 10.8 H Gran % Lymph % (Auto) Gran # Lymph # (Auto) Seg Neutrophils % 86 H Band Neutrophils % Lymphocytes % 9 L BUN 39 H 29 H Creatinine 2.1 H 2.1 H Glucose 115 H 112 H Calcium 8.5 L 8.2 L Lactate Dehydrogenase 264 H 256 H C-Reactive Protein Total Protein 5.2 L 5.6 L Albumin 2.8 L 3.0 L Urine Protein 01/23/19 01/22/19 01/22/19 04:25 21:45 18:05 RBC 3.87 L Hgb 11.7 L Hct 34.8 L MPV 10.8 H Gran % 89.8 H Lymph % (Auto) 6.8 L Gran # Lymph # (Auto) 0.5 L Seg Neutrophils % Band Neutrophils % 12 H Lymphocytes % 12 L BUN Creatinine Glucose Calcium Lactate Dehydrogenase C-Reactive Protein Total Protein Albumin Urine Protein 100 A 01/22/19 01/22/19 01/22/19 18:04 18:03 18:03 RBC 4.47 L Hgb 13.4 L Hct 40.5 L MPV 10.9 H Gran % 81.3 H Lymph % (Auto) 10.0 L Gran # 8.5 H Lymph # (Auto) 1.0 L Seg Neutrophils % Band Neutrophils % Lymphocytes % BUN 27 H Creatinine 2.1 H Glucose Calcium Lactate Dehydrogenase C-Reactive Protein 2.5 H Total Protein Albumin Urine Protein Meds: Medications Acetaminophen (Tylenol) 650 mg PO Q6HP PRN PRN Reason: PAIN/FEVER > 101 Last Admin: 01/24/19 06:30 Dose: 650 mg Documented by: Albuterol/Ipratropium (Duoneb) 3 ml NEB Q4HP PRN PRN Reason: Shortness Of Breath Calcium Carbonate/Glycine (Tums) 500 mg CHEWED Q4HP PRN PRN Reason: Dyspepsia Last Admin: 01/23/19 19:17 Dose: 500 mg Documented by: Citalopram Hydrobromide (Celexa) 20 mg PO DAILY [facility] Last Admin: 01/23/19 08:24 Dose: 20 mg Documented by: Clonidine HCl (Catapres) 0.1 mg PO Q8HP PRN PRN Reason: Hypertension SBP>150 Last Admin: 01/23/19 18:34 Dose: 0.1 mg Documented by: Clonidine HCl (Catapres) 0.2 mg PO BID [facility] Last Admin: 01/23/19 21:34 Dose: 0.2 mg Documented by: Diphenhydramine HCl (Benadryl) 25 mg PO PRN PRN PRN Reason: Allergic Reaction Docusate Sodium (Colace) 100 mg PO BID [facility] Last Admin: 01/23/19 21:33 Dose: 100 mg Documented by: Famotidine (Pepcid) 20 mg PO HS [facility] Last Admin: 01/23/19 21:34 Dose: 20 mg Documented by: Gemfibrozil (Lopid) 150 mg PO BID [facility] Last Admin: 01/23/19 21:31 Dose: 150 mg Documented by: Heparin Sodium (Porcine) (Heparin) 5,000 unit SQ Q12 [facility] Last Admin: 01/23/19 21:33 Dose: 5,000 unit Documented by: Hydralazine HCl (Apresoline) 0 mg IV Q4-6HP PRN PRN Reason: Hypertension Last Admin: 01/24/19 07:01 Dose: 10 mg Documented by: Potassium Chloride 40 meq/ (Dextrose) 520 mls @ 130 mls/hr IV UD PRN PRN Reason: Potassium < 3 Levofloxacin (Levaquin) 750 mg in 150 mls @ 100 mls/hr IV Q48H [facility]; Protocol Magnesium Sulfate (Magnesium Sulfate) 2 gm in 50 mls @ 50 mls/hr IV UD PRN PRN Reason: Magnesium </= 1.6 Labetalol HCl (Trandate) 0 mg IV Q2HP PRN PRN Reason: INCREASED HEART RATE Last Admin: 01/24/19 06:21 Dose: 20 mg Documented by: Labetalol HCl (Trandate) 200 mg PO BID [facility] Last Admin: 01/23/19 21:35 Dose: 200 mg Documented by: Lactulose (Cephulac) 10 gm PO DAILYP PRN PRN Reason: Constipation Lorazepam (Ativan) 0.5 mg PO TIDP PRN PRN Reason: Anxiety Last Admin: 01/24/19 06:30 Dose: 0.5 mg Documented by: Nitroglycerin (Nitrostat) 0.4 mg SL Q15MIN PRN PRN Reason: Chest Pain Ondansetron HCl (Zofran) 4 mg IV Q4HP PRN PRN Reason: Nausea And Vomiting Oxybutynin Chloride (Ditropan Xl) 10 mg PO DAILY [facility] Last Admin: 01/23/19 10:53 Dose: 10 mg Documented by: Polyethylene Glycol (Miralax) 17 gm PO DAILYP PRN PRN Reason: Constipation Potassium Chloride (Kdur) 40 meq PO UD PRN PRN Reason: Potssium is 3-3.5 Potassium Chloride (Kdur) 40 meq PO UD PRN PRN Reason: Potassium < 3 Prednisone (Prednisone) 40 mg PO [facility] Stop: 01/26/19 08:01 Last Admin: 01/23/19 08:19 Dose: 40 mg Documented by: Promethazine HCl (Phenergan) 0 mg PO Q6HP PRN PRN Reason: Nausea And Vomiting Senna (Senokot) 2 tab PO HSP PRN PRN Reason: Constipation Last Admin: 01/23/19 21:34 Dose: 2 tab Documented by: Sodium Chloride (Saline Flush) 10 ml IV Q8 [facility] Last Admin: 01/24/19 05:36 Dose: 10 ml Documented by: Trazodone HCl (Desyrel) 50 mg PO HS [facility] Last Admin: 01/23/19 21:33 Dose: 50 mg Documented by: Verapamil HCl (Calan Sr) 360 mg PO DAILY [facility] Medical - PN: A/P - Time Spent With Patient Total time spent is greater than 50% in coordination of care (as documented) at patient's floor/unit and/or counseling patient: - Narrative A/P Narrative: A: *Pneumonia, atypical vs likely Viral PNA: Failed outpatient abx. (+) Human Metapneumovirus -mild bandemia -myco/strep neg *Acute hypoxic respiratory failure: -on room air now *Hypertensive urgency: Did miss one of his blood pressure medications on day of admit -home meds include labetalol/clonidine/verapamil -labile BP, anxiety component *CKD IIIb-IV: *Depression/anxiety: quite anxious *GERD: * P: -IV abx, pending SC -prn O2 -IS/Acapella, prn nebs -prednisone -cont home BP meds (titrate up) and prn IV -cont home prn ativan -ambulate -pt/ot -ppx: Heparin Full code Medical - PN: Qual - VTE Deep Vein Thrombosis/Pulmonary Embolism Present on Admission: No
[2019-01-24] MEDS: predniSONE 20 MG TABLET PO SCH (08:09)
[2019-01-24] MEDS: GEMFIBROZIL 600 MG TABLET PO SCH (08:10)
[2019-01-24] MEDS: OXYBUTYNIN CHLORIDE 5 MG TAB.XL.24H PO SCH (08:10)
[2019-01-24] MEDS: CITALOPRAM 20 MG TABLET PO SCH (08:10)
[2019-01-24] MEDS: HEPARIN 5,000 UNIT/ML VIAL SQ SCH (08:10)
[2019-01-24] MEDS: DOCUSATE SODIUM 100 MG CAPSULE PO SCH (08:11)
[2019-01-24] MEDS ORDERED: LORATADINE 10 MG TABLET PO ONE (08:34)
[2019-01-24] MEDS ORDERED: hydrOXYzine 25 MG TABLET PO PRN (08:52)
[2019-01-24] MEDS ORDERED: POLYETHYLENE GLYCOL 3350 17 GM PACKET PO ONE (08:55)
[2019-01-24] MEDS ORDERED: cloNIDine HCL 0.1 MG TABLET PO SCH (09:00)
[2019-01-24] MEDS ORDERED: LABETALOL 100 MG TABLET PO SCH (09:00)
[2019-01-24] MEDS ORDERED: VERAPAMIL 120 MG TAB.XL.24H PO SCH (09:00)
[2019-01-24] MEDS ORDERED: LEVOFLOXACIN 750 MG/150 ML BAG IV SCH ×2 (09:00)
--- NOTE | 2019-01-24 10:05 | Discharge Summary ---
Medical - DS: Prov Patient information: Note initiated : 01/24/19 at 9:59 am Service Date, if different from initiated Date: [] Patient: Kaden Romero 78 y/o M admitted on 01/22/19 for Shortness of breath. Chief Complaint: [] Date of admission: 01/22/19 20:57 Discharge date: 01/24/19 Primary care physician: Estevan Carter Consults: 01/22/19 Consult to Physician [CONS] Stat Comment: Consulting Provider: Brendan Stevenson Reason For Exam: Physician to Consult Medical - DS: Meds - Discharge Medications Prescriptions: Levofloxacin [Levaquin] 750 mg PO Q48H #1 tab Active and Home Medications: Home Medications diphenhydrAMINE [Benadryl] 25 mg PO PRN PRN 09/01/15 [History Confirmed 01/22/19 Last Taken Unknown] traZODone HCL [Desyrel] 50 mg PO HS 09/01/15 [History Confirmed 01/22/19 Last Taken Unknown] acetylcarnitine HCl 250 mg capsule 500 mg PO BID 05/05/18 [History Confirmed 01/22/19 Last Taken Unknown] arginine (L-arginine) 500 mg capsule 500 mg PO HS cap 05/05/18 [History Confirmed 01/22/19 Last Taken Unknown] clonidine HCl 0.2 mg tablet 0.2 mg PO BID 05/05/18 [History Confirmed 01/22/19 Last Taken Unknown] coenzyme Q10 30 mg-Lcarnitine 250 mg-vit C 12 mg-vit E 75 unit capsule 1 cap PO HS cap 05/05/18 [History Confirmed 01/22/19 Last Taken Unknown] epinephrine 0.3 mg/0.3 mL injection, auto-injector 0.3 mg IM ONCE PRN 05/05/18 [History Confirmed 01/22/19 Last Taken Unknown] glutamine 500 mg capsule 500 mg PO HS cap 05/05/18 [History Confirmed 01/22/19 Last Taken Unknown] nitroglycerin 0.4 mg sublingual tablet 0.4 mg SUBLINGUAL Q5-15M PRN 05/05/18 [History Confirmed 01/22/19 Last Taken Unknown] citalopram 10 mg tablet 30 mg PO QDAY tab 05/20/18 [History Confirmed 01/22/19 Last Taken Unknown] gemfibrozil 600 mg tablet 300 mg PO BID tab 05/20/18 [History Confirmed 01/22/19 Last Taken Unknown] verapamil ER 240 mg 24 hr capsule,extended release 360 mg PO DAILY 05/20/18 [History Confirmed 01/23/19 Last Taken Unknown] famotidine 20 mg tablet 20 mg PO DAILYP PRN 07/07/18 [History Confirmed 01/22/19 Last Taken Unknown] lorazepam 0.5 mg tablet 0.5 mg PO TIDP PRN 07/07/18 [History Confirmed 01/22/19 Last Taken Unknown] labetalol 200 mg tablet 200 mg PO BID tab 07/15/18 [History Confirmed 01/23/19 Last Taken Unknown] ferrous sulfate 325 mg (65 mg iron) tablet 325 mg PO QDAY #90 tab 10/26/18 [Rx Confirmed 01/22/19 Last Taken Unknown] azithromycin 250 mg tablet See Rx Instructions PO .COMPLEX #6 tab 01/19/19 [Rx Confirmed 01/22/19 Last Taken Unknown] Ascorbate Calcium [Vitamin C] 500 mg PO BID 01/22/19 [History Confirmed 01/22/19 Last Taken Unknown] Cyanocobalamin (Vitamin B-12) [Vitamin B12] 2,500 mcg PO QAM 01/22/19 [History Confirmed 01/22/19 Last Taken Unknown] Folic Acid 0.4 mg PO QAM 01/22/19 [History Confirmed 01/22/19 Last Taken Unknown] Potassium Chloride 4 cap PO BID 01/22/19 [History Confirmed 01/23/19 Last Taken Unknown] levOCARNitine TARTRATE [l-Carnitine] 500 mg PO QPM 01/22/19 [History Confirmed 01/22/19 Last Taken Unknown] Oxybutynin Chloride [Ditropan Xl] 10 mg PO DAILY 01/23/19 [History Confirmed 01/23/19 Last Taken Unknown] Medical - DS: Hosp Hospital course: Mr. Romero is a 78 year old M Mr. Romero is a 78 year old M Presents to the ED with continued cough and shortness of breath. Patient was seen in minor care on the and diagnosed with left-sided pneumonia and was given azithromycin and prednisone bronchodilators. He states that it took a couple days and then he started to feel better. However, last night he started having increased cough again with increased shortness of breath and was very short of breath this morning. Patient says he had sick contacts about a week ago. The symptoms that brought him into the minor care included shortness of breath pleuritic chest pain on the left side both with coughing and with deep breathing. He had productive cough of yellow sputum any fevers or chills. As per his admission the symptoms started improve and then the symptoms got dramatically worse last night. His says he has a wheezy cough as well as productive. He feels very weak. Feels like he cannot take a deep breath because of the pleuritic chest pain. Has a headache as well. Opponent and EKG done in the ED without any acute changes. Chest x-ray with infiltrates interstitial concerning for pneumonia. No effusions or heart enlargement. He is found to be quite hypertensive with systolic of 220/120. He states he did not take his labetalol this morning because his heart rate was running fast and he thought labetalol made it worse. He did take his verapamil and was clonidine. He states he does have a history of atrial fibrillation and is on verapamil but is never been talked about anticoagulation. He is in sinus rhythm here. He says the breathing treatments in the ED gave him only a little bit of improvement. ABG showed a PaO2 of 50. Lactate was okay. No history of COPD. 5/4 Patient had a difficult time getting to sleep because of cough but eventually fell asleep and slept well. Feeling better today. Less shortness of breath and improved cough. Pleuritic chest pain improving. No new complaints. 5/5 Left arm and off throughout the night. Mild headache this morning. Extremely anxious person. Blood pleasure overall improved still elevated, adjusting blood pressure medications. No bandemia today. Minimal cough, denies dyspnea at rest. Nurse noted old notes of prior visits to hospital with high BP's as well. Pt states home SBP 140's. Likely anxiety component, but also question what home BP is at. Has been on room air today. And patient adamant about going home today. Instructed him that his blood pressure still labile and that today we increased his labetalol from 200-300 twice daily. Reminded him to keep a log of his blood pressure twice daily bring to his primary care provider for any adjustments. Instructed to follow-up closely with his primary care provider Discharge diagnosis: Viral pneumonia acute hypoxic respiratory failure hypertensive urgency anxi Secondary discharge diagnosis: Anxiety, CKD stage IIIb-IV - Time Spent with Patient Total time spent providing and/or coordinating discharge services: Greater than 30 minutes Medical - DS: Exam - Constitutional Vitals: Vital Signs Temp Pulse Pulse Pulse Pulse Resp BP 01/24/19 08:10 157/89 01/24/19 08:01 147/77 01/24/19 08:00 84 01/24/19 07:57 151/77 01/24/19 07:24 162/81 01/24/19 07:10 167/84 01/24/19 07:01 166/88 01/24/19 06:29 172/86 01/24/19 06:06 170/97 01/24/19 06:01 169/97 01/24/19 04:19 98.2 F 16 179/102 01/24/19 04:00 98.2 F 16 01/24/19 02:50 80 171/86 01/24/19 01:41 79 16 152/80 01/24/19 00:00 98.4 F 82 12 165/92 01/23/19 21:25 83 01/23/19 20:00 98.6 F 20 01/23/19 18:27 01/23/19 15:00 97.6 F 20 01/23/19 11:00 97.7 F 20 BP BP Pulse Ox 01/24/19 08:10 01/24/19 08:01 01/24/19 08:00 97 01/24/19 07:57 01/24/19 07:24 01/24/19 07:10 01/24/19 07:01 01/24/19 06:29 01/24/19 06:06 01/24/19 06:01 01/24/19 04:19 95 01/24/19 04:00 179/102 95 01/24/19 02:50 179/86 01/24/19 01:41 01/24/19 00:00 96 01/23/19 21:25 96 01/23/19 20:00 167/97 96 01/23/19 18:27 172/80 01/23/19 15:00 162/91 96 01/23/19 11:00 132/76 96 Intake and Output 01/23/19 01/24/19 01/24/19 21:59 05:59 13:59 Intake Total 1180 200 Output Total 300 925 600 Balance 880 -725 -600 Intake: Oral 1180 200 Output: Urine Catheter Amount 350 Void Amount 300 925 250 Other: Meal Dinner Percent of Meal Consumed 100% Urine Appearance Clear Clear Urine Color Straw Straw Weight 87.997 kg Medical - DS: Data Labs on day of discharge: Labs from last 24 hours 01/24/19 01/24/19 04:08 04:08 WBC 8.0 RBC 3.69 L Hgb 11.2 L Hct 33.2 L MCV 90.1 MCH 30.2 MCHC 33.6 RDW 13.7 Plt Count 179 MPV 10.8 H Total Counted 100 Seg Neutrophils % 86 H Band Neutrophils % Not Reportable Lymphocytes % 9 L Monocytes % (Manual) 5 Platelet Estimate Normal RBC Morphology Normal Sodium 139 Potassium 4.0 Chloride 104 Carbon Dioxide 22 Anion Gap 13.0 BUN 39 H Creatinine 2.1 H GFR Calculation 29 Glucose 115 H Uric Acid 6.4 Calcium 8.5 L Phosphorus 2.9 Magnesium 2.1 Total Bilirubin 0.2 Direct Bilirubin < 0.2 GGT 20 AST 23 ALT 10 Alkaline Phosphatase 79 Lactate Dehydrogenase 264 H Total Protein 5.2 L Albumin 2.8 L Globulin 2.4 Albumin/Globulin Ratio 1.2 Triglycerides 90 Medical - DS: A/P - Patient/Caregiver Discharge Instructions Activity: increase activity as tolerated Diet: Regular Diet Additional Instructions: Monitor blood pressure twice daily and bring log to primary care physician Prescriptions: Levofloxacin [Levaquin] 750 mg PO Q48H #1 tab - Follow up Plan Follow up with: Estevan Carter MD [Primary Care Provider] - Disposition: Home, Self-Care Prognosis: Fair Rehab Potential: Fair Overall status at discharge: patient is progressing back to baseline Medical - DS: Qual - VTE Deep Vein Thrombosis/Pulmonary Embolism Present on Admission: No
== END 2019-01-24 17:35 | disposition home or self-care (01) | DRG 193 ==
LOC: ED 17:34 → ICU 20:57
PROVIDERS: ADMIT Internal Medicine; ATTEND Internal Medicine

== ENCOUNTER 2019-08-31 09:42 | Observation (INO) ==
[2019-08-31 10:12] LABS: POC Blood Urea Nitrogen 72 mg/dl (8-23); POC CO2 23 mmol/L (22-30); POC Calcium, Ionized 1.29 mmol/L (1.16-1.32); POC Chloride 102 mmol/L (96-108); POC Creatinine 3.4 mg/dl (0.7-1.2); POC Glucose, Random 91 mg/dL (70-105); POC Potassium 6.2 mmol/L (3.3-5.1); POC Sodium 131 mmol/L (133-145)
--- NOTE | 2019-08-31 10:44 | Emergency Department Note ---
General Adult HPI - General Chief complaint: Recheck/Abnormal Lab/Rx Stated complaint: High K Time Seen by Provider: 08/31/19 09:51 Source: patient Mode of arrival: ambulatory Limitations: no limitations - History of Present Illness HPI Narrative: 79-year-old male presents with no complaints. States his Dr. Emmanuel wanted him to be evaluated in the ER due to potassium of 6.4. He denies chest pain or palpitations. No dizziness. No shortness of breath. He has no complaints at all. He does state this is happened to him in the past when taking Spi ronolactone and he was recently put back on it. States he did just stop it again and his potassium a few days ago was 5.1 and then yesterday was 6.4 and thus he was sent in for evaluation this morning. He does see Dr. Emmanuel for CKD - Related Data Home Medications Medication Instructions Recorded Confirmed clonidine HCl 0.2 mg tablet 0.2 mg PO BID 05/05/18 08/31/19 ropinirole 0.5 mg tablet 0.5 mg PO QHS 05/25/19 08/20/19 trazodone 50 mg tablet 50 mg PO HS tab 08/17/19 08/31/19 verapamil 240 mg tablet,extended 240 mg PO BID tab 08/17/19 08/31/19 release carvedilol 25 mg tablet 25 mg PO BID tab 08/20/19 08/31/19 citalopram 10 mg tablet 30 mg PO QDAY tab 08/20/19 08/31/19 clopidogrel 75 mg tablet 75 mg PO QDAY 08/20/19 08/31/19 oxybutynin chloride 10 mg See Rx Instructions PO BID tab 08/20/19 08/31/19 tablet,extended release 24 hr Ferrous Sulfate [Feosol] 325 mg PO DAILY 08/31/19 08/31/19 Gemfibrozil [Lopid] 300 mg PO BID 08/31/19 08/31/19 Losartan [Cozaar] 50 mg PO DAILY 08/31/19 08/31/19 Spironolactone [Aldactone] 25 mg PO DAILY 08/31/19 08/31/19 Allergies Allergy/AdvReac Type Severity Reaction Status Date / Time morphine Allergy Severe code Verified 08/31/19 09:44 benazepril Allergy Unknown Unknown Verified 08/31/19 09:44 amlodipine [From Norvasc] AdvReac Mild Increased Verified 08/31/19 09:44 HR bisoprolol [From Ziac] AdvReac Mild Increased Verified 08/31/19 09:44 HR diltiazem [From Cardizem] AdvReac Mild dysrhythmia Verified 08/31/19 09:44 s hydrochlorothiazide AdvReac Mild Increased Verified 08/31/19 09:44 [From Ziac] HR simvastatin [From Zocor] AdvReac Mild A fib Verified 08/31/19 09:44 Terazosin [From Hytrin] AdvReac Mild Palps & Verified 08/31/19 09:44 skipped beat mytran Allergy Mild Unknown Uncoded 08/20/19 11:27 Review of Systems All systems ED: reviewed and negative except as stated. Past Medical History - Past Medical History [facility] Narrative: Medical History (Last Reviewed 08/17/19 @ 15:10 by Amber Lozoya RN) Personal history of other diseases of the circulatory system (Chronic) Internal hemorrhoids with complication (Chronic) Urge incontinence (Chronic) Chronic foot pain (Chronic) Peripheral edema (Chronic) Depression (Chronic) Seborrheic keratosis (Chronic) Lentigo (Chronic) Hemangioma (Chronic) Actinic keratosis (Chronic) Seborrheic dermatitis (Chronic) Atopic dermatitis (Chronic) History of tobacco use (Chronic) Arthritis (Chronic) Restless leg syndrome (Chronic) Other instability, left ankle (Chronic) Other instability, right ankle (Chronic) Other instability, right foot (Chronic) Male urinary stress incontinence (Chronic) Balanitis (Chronic) Prostate CA (Chronic) Hyperlipidemia (Chronic) Edema (Chronic) History of adenocarcinoma of prostate (Chronic) Palpitations (Chronic) Paroxysmal supraventricular tachycardia (Chronic) Hypertensive heart disease (Chronic) Hypertension (Chronic) Chest discomfort (Chronic) Dissection of aortic arch (Chronic) Dehiscence of incision (Acute) History of EKG (Chronic ~03/03/18) History of echocardiogram (Chronic ~2009) History of melanoma (Chronic ~2013) History of skin cancer (Chronic) Past Surgical History (Last Reviewed 08/17/19 @ 15:10 by Amber Lozoya RN) H/O left inguinal hernia repair (Chronic) H/O radical prostatectomy (Chronic ~2008) History of prostatectomy (Chronic) Medical history: Reports: atrial fibrillation, hypertension - Social History smoking status: Former smoker Alcohol use: Reports: None Drug use: Reports: none Physical Exam Limitations: no limitations General appearance: alert Head: atraumatic, normocephalic, normal inspection Eye: Present: normal appearance. Absent: conjunctival injection ENT: Present: mucous membranes moist Chest: Present: symmetric chest wall rise Respiratory: Present: normal lung sounds bilaterally. Absent: respiratory distress, rales/crackles, accessory muscle use Cardiovascular: Present: regular rate, normal rhythm, normal heart sounds Abdominal: Present: soft, normal bowel sounds. Absent: distention, tenderness, guarding, mass Extremities: Present: normal inspection Neurological: Present: alert, oriented X3 Psychiatric: Present: normal affect, normal mood Skin: Present: warm, dry, intact, normal color. Absent: rash, hives, cyanosis, diaphoresis Course Course Narrative: At 1020 I did get a return fingerstick potassium of 6.2. I did speak with Dr. Emmanuel. She would like us to admit this patient and speak to the hospitalist about admission and she will consult. She did not have a preference on hyp erkalemia protocol and would like us to consult with hospitalist. @1100 I did speak with Dr. Chavez, the hospitalist who agrees to accept this pt- tele obs. Vital Signs Temperature 97.7 F 08/31/19 09:45 Respiratory Rate 20 08/31/19 09:45 Blood Pressure 129/70 08/31/19 09:45 Pulse Oximetry (%) 95 08/31/19 09:45 Temperature 97.7 F 08/31/19 09:45 Pulse Rate 56 L 08/31/19 10:41 Respiratory Rate 14 08/31/19 10:41 Blood Pressure 154/74 08/31/19 10:41 Pulse Oximetry (%) 97 08/31/19 10:41 Medical Decision Making - Lab Data Lab results reviewed: Yes I reviewed the patient's lab results. Result diagrams: 08/31/19 10:07 08/31/19 10:06 Lab Results 08/31/19 Range/Units 10:06 POC Hct 31.0 L (41.0-55.0) % POC Sodium 131 L (133-145) mmol/L POC Potassium 6.2 H* (3.3-5.1) mmol/L POC Chloride 102 (96-108) mmol/L POC Total CO2 23 (22-30) mmol/L POC BUN 72 H (8-23) mg/dl POC Creatinine 3.4 H (0.7-1.2) mg/dl POC Glucose 91 (70-105) mg/dL POC WB Ioniz Calcium 1.29 (1.16-1.32) mmol/L - Radiology Data Radiology results reviewed: Yes I reviewed the patient's radiology results. 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) Condition: Fair Referrals: Estevan Carter MD [Primary Care Provider] - Joanna Martinez MD [Physician] - Time of Disposition: 11:00
[2019-08-31] MEDS ORDERED: FUROSEMIDE 40 MG/4 ML VIAL IV ONE (10:52)
[2019-08-31] MEDS ORDERED: ALBUTEROL SULFATE 5 MG/ML NEB SOLUTION BOTTLE NEB ONE (10:52)
[2019-08-31] MEDS ORDERED: DEXTROSE 50% 50 ML VIAL IV ONE (10:52)
[2019-08-31] MEDS ORDERED: CALCIUM CHLORIDE 1,000 MG/10 ML SYRINGE IV ONE (10:52)
[2019-08-31] MEDS ORDERED: INSULIN REGULAR, HUMAN 1 UNIT/0.01 ML UNIT IV ONE (10:52)
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
[2019-08-31 11:19] LABS: Basophils # (Auto) 0 K/mcL (0.0-0.3); Basophils % (Auto) 0.5 % (0.0-2.0); Eosinophils # (Auto) 0.3 K/mcL (0.0-0.7); Eosinophils % (Auto) 4.8 % (0.0-7.0); Granulocytes % (Auto) 59.2 % (38.0-78.0); Hematocrit 31.3 % (41.0-55.0); Hemoglobin 10.3 g/dL (13.5-16.5); Lymphocytes # (Auto) 1.5 K/mcL (1.5-4.8); Lymphocytes % (Auto) 21.7 % (15.5-49.0); Mean Cell Volume 92.6 fL (80.0-100.0); Mean Platelet Volume 9.8 fL (7.4-10.4); Monocytes # (Auto) 0.9 K/mcL (0.1-0.9); Monocytes % (Auto) 13.8 % (1.0-12.0); Platelet Count 250 K/mcL (140-440); RBC 3.38 M/mcL (4.50-5.90); WBC 6.9 K/mcL (4.5-11.0)
[2019-08-31 11:24] LABS: ABG Methemoglobin 0.3 % (0.4-1.5); Total Hemoglobin 10.1 gm/dL (13.5-16.5); VBG Base Excess -2.7 (-2.0-2.0); VBG HCO3 23.7 mmol/L (24.0-28.0); VBG Oxygen Saturation 74.1 % (40.0-70.0); VBG PCO2 48.5 mmHg (41.0-51.0); VBG PH 7.31 U (7.32-7.42); VBG PO2 55 mmHg (25-40); VBG Total CO2 25.2 mmol/L (25.0-29.0)
[2019-08-31 11:34] LABS: ALT/SGPT 9 U/l (0-40); AST/SGOT 19 U/l (0-37); Albumin 4.4 gm/dL (3.2-5.2); Albumin/Globulin Ratio 1.5 (1.0-2.3); Alkaline Phosphatase 94 U/L (39-117); Bilirubin,Total 0.2 mg/dL (0.0-1.0); Carbon Dioxide 21 mmol/L (22-30); Chloride 100 mmol/L (96-108); Globulin 2.9 gm/dL (2.2-3.7); Glucose 94 mg/dL (70-105)
[2019-08-31 11:39] LABS: Blood Urea Nitrogen 68 mg/dl (8-23); Glomerular Filtration Rate 18
[2019-08-31] MEDS ORDERED: ONDANSETRON 4 MG/2 ML VIAL IV PRN (12:03)
[2019-08-31] MEDS ORDERED: SODIUM POLYSTYRENE SULFONATE 15 GM/60 ML SUSPENSION PO ONE (12:03)
[2019-08-31] MEDS ORDERED: POLYETHYLENE GLYCOL 3350 17 GM PACKET PO PRN (12:03)
[2019-08-31] MEDS ORDERED: BISACODYL 10 MG SUPP.RECT PR PRN (12:03)
[2019-08-31] MEDS ORDERED: ACETAMINOPHEN 650 MG/65 ML BOTTLE IV PRN (12:03)
[2019-08-31] MEDS ORDERED: ONDANSETRON 4 MG ODT TABLET SL PRN (12:03)
[2019-08-31] MEDS ORDERED: MELATONIN 3 MG TABLET PO PRN (12:03)
[2019-08-31] MEDS: 0.9 % SODIUM CHLORIDE 10 ML SYRINGE IV SCH ×2 (14:00→21:15)
[2019-08-31] MEDS: CARVEDILOL 12.5 MG TABLET PO SCH (16:24)
--- NOTE | 2019-08-31 16:34 | Nephrology Consult Note ---
History of Present Illness - Reason for Consult Patient information: Note initiated : 08/31/19 at 4:32 pm Service Date, if different from initiated Date: [] Patient: Kaden Romero 79 y/o M admitted on 08/31/19 for High K. Chief Complaint: [] Consult date: 08/31/19 hyperkalemia Requesting physician: Emmett Chavez - History of Present Illness The patient is a 79 yr old Hypertensive gentleman with medical non compliance, HTN, CKD 4 and uncontrolled HTN. He develops adverse Rxn to commonly used BP Rx and as a result has been treated, or at prescribed a combination of losartan and aldactone. His potassium has been rock stable in the 4's till last PM when I was notified by the lab of a K 6.3 meQ/L. I phoned the patient only to get his voice mail at 1045 pm. He was instructed to do the followin. Go to the ED 2. If he refused to do that, then he should call the office at 0800 and NOT take his losartan or aldactone. He was reached and told to go to ER. There he was evaluated and admitted for Acute on Chronic renal failure, hyperkalemia and accelerated HTN. ER started hyperkalemia protocol. Serum Creatinine Serum K Laboratory Tests 08/31/19 10:06 Sodium 131 L Potassium 6.3 H* Chloride 100 POC Total CO2 23 Anion Gap 10.0 BUN 68 H Creatinine 3.1 H GFR Calculation 18 Glucose 94 Calcium 10.0 Albumin 4.4 So this patient has proven the non utility of RAASI due to follow up and compliance issues. He is best treated with Minoxidil, lasix and carvedilol for rate control, plus decreased dose of verapamil. Save clonidine for prn use. would observe O/N and do not discharge on home Rx but use new Rx regiment. Selected Entries 08/31/19 09:45 08/31/19 10:19 08/31/19 10:21 Pulse Rate Blood Pressure 129/70 155/74 151/73 08/31/19 10:41 08/31/19 11:03 08/31/19 11:21 Pulse Rate 56 L 62 59 L Blood Pressure 154/74 169/84 160/74 08/31/19 11:41 08/31/19 12:10 08/31/19 14:49 Pulse Rate 57 L 57 L 71 Blood Pressure 173/74 173/74 144/82 08/31/19 16:01 08/31/19 16:47 Pulse Rate 76 78 Blood Pressure 153/88 Trend of BP and pulse on only carvedilol so far. hr is increasing so will restart Verapamil at 120 mg qPM Clonidine prn Prior U/S with mild subtotal SERAFIN without physiologic significance clinically. W/U for hyperaldo state negative. Review of Systems Constitutional: weakness, weight loss Cardiovascular: edema (due to amlodipine) Gastrointestinal: other Musculoskeletal: back pain, muscle weakness Integumentary: dry skin Neurological: weakness Psychiatric: mood swings Endocrine: change in body appearance Past History Past medical history: Medical history: Personal history of other diseases of the circulatory system (Chronic) Internal hemorrhoids with complication (Chronic) Urge incontinence (Chronic) Chronic foot pain (Chronic) Peripheral edema (Chronic) Depression (Chronic) Seborrheic keratosis (Chronic) Lentigo (Chronic) Hemangioma (Chronic) Actinic keratosis (Chronic) Seborrheic dermatitis (Chronic) Atopic dermatitis (Chronic) History of tobacco use (Chronic) Arthritis (Chronic) Restless leg syndrome (Chronic) Other instability, left ankle (Chronic) Other instability, right ankle (Chronic) Other instability, right foot (Chronic) Male urinary stress incontinence (Chronic) Balanitis (Chronic) Prostate CA (Chronic) Hyperlipidemia (Chronic) Edema (Chronic) History of adenocarcinoma of prostate (Chronic) Palpitations (Chronic) Paroxysmal supraventricular tachycardia (Chronic) Hypertensive heart disease (Chronic) Hypertension (Chronic) Chest discomfort (Chronic) Dissection of aortic arch (Chronic) Dehiscence of incision (Acute) History of EKG (Chronic ~03/03/18) History of echocardiogram (Chronic ~2009) History of melanoma (Chronic ~2013) Taken off left shoulder, face and scalp at [facility] History of skin cancer (Chronic) Many skin cancer surgeries Surgical History H/O left inguinal hernia repair (Chronic) H/O radical prostatectomy (Chronic ~2008) For carcinoma and arthritis History of prostatectomy (Chronic) Removal due to cancer Family History Father , From [facility] 61 CAD (coronary artery disease) Mother CAD (coronary artery disease) had rheumatic fever as a child Brother No known health problems Brother Cancer Sister CVA (cerebral vascular accident) Sister Cancer Lung Sister No known health problems Social History housing: house marital status: service: Yes ([employer]) occupational status: retired occupation: Retired from [employer] smoking status: Former smoker quit date: 09/22/84 alcohol intake frequency: does not drink substance use type: does not use Medications and Allergies Home Medications Medication Instructions Recorded Confirmed Type clonidine HCl 0.2 mg tablet 0.2 mg PO BID 05/05/18 08/31/19 History ropinirole 0.5 mg tablet 1 - 2 tab PO QHS 05/25/19 08/31/19 History trazodone 50 mg tablet 50 mg PO HS tab 08/17/19 08/31/19 History verapamil 240 mg tablet,extended 240 mg PO DAILY tab 08/17/19 08/31/19 History release carvedilol 25 mg tablet 25 mg PO BID tab 08/20/19 08/31/19 History citalopram 10 mg tablet 20 mg PO BID tab 08/20/19 08/31/19 History clopidogrel 75 mg tablet 37.5 mg PO BID 08/20/19 08/31/19 History Ascorbate Calcium [Vitamin C] 500 mg PO BID 08/31/19 08/31/19 History Astaxanthin 4 mg PO BID 08/31/19 08/31/19 History Biotin 1,000 mcg PO DAILY 08/31/19 08/31/19 History Cyanocobalamin (Vitamin B-12) 100 mcg PO DAILY 08/31/19 08/31/19 History [Vitamin B-12] Ferrous Sulfate [Feosol] 325 mg PO DAILY 08/31/19 08/31/19 History Gemfibrozil [Lopid] 300 mg PO BID 08/31/19 08/31/19 History Losartan [Cozaar] 50 mg PO DAILY 08/31/19 08/31/19 History Oxybutynin Chloride [Ditropan] 5 mg PO HS 08/31/19 08/31/19 History Oxybutynin Chloride [Ditropan] 10 mg PO DAILY 08/31/19 08/31/19 History Pyridoxine [Vitamin B-6] 100 mg PO DAILY 08/31/19 08/31/19 History Spironolactone [Aldactone] 25 mg PO DAILY 08/31/19 08/31/19 History Verapamil HCl [Verapamil ER] 120 mg PO HS 08/31/19 08/31/19 History Vitamin D3 1,000 units PO BID 08/31/19 08/31/19 History Allergies Allergy/AdvReac Type Severity Reaction Status Date / Time morphine Allergy Severe code Verified 08/31/19 09:44 benazepril Allergy Unknown Unknown Verified 08/31/19 09:44 amlodipine [From Norvasc] AdvReac Mild Increased Verified 08/31/19 09:44 HR bisoprolol [From Ziac] AdvReac Mild Increased Verified 08/31/19 09:44 HR diltiazem [From Cardizem] AdvReac Mild dysrhythmia Verified 08/31/19 09:44 s hydrochlorothiazide AdvReac Mild Increased Verified 08/31/19 09:44 [From Ziac] HR simvastatin [From Zocor] AdvReac Mild A fib Verified 08/31/19 09:44 Terazosin [From Hytrin] AdvReac Mild Palps & Verified 08/31/19 09:44 skipped beat mytran Allergy Mild Unknown Uncoded 08/20/19 11:27 Exam - Vital Signs Vital signs: Temp Pulse Resp BP Pulse Ox 36.4 C 76 18 153/88 98 08/31/19 12:24 08/31/19 16:01 08/31/19 12:24 08/31/19 16:01 08/31/19 16:01 - General Appearance General appearance: cachectic, frail EENT: ATNC, PERRL, mucous membranes moist, vision intact Neck: no JVD, no carotid bruit, supple Respiratory: no kyphosis, clear Cardiology: no murmurs, regular rate (bradycardic on admission) Gastrointestinal: normoactive bowel sounds, no tenderness, no guarding, no or ganomegaly Integumentary: no rash, warm and dry Neurologic: no focal deficit, no asterixis, alert and oriented x3, CN 3-12 intact Musculoskeletal: no deformities, no erythema, no cyanosis, no clubbing Psychiatric: mood/affect appropriate Results - Lab Results 08/31/19 10:07 08/31/19 10:06 Most recent lab results Calcium 10.0 mg/dl (8.6-10.4) 08/31/19 10:06 Assessment and Plan (1) Renal failure (ARF), acute on chronic 1. Stop losartan and spironolactone 2. Control BP with non-RAASI Rx regiment 3. Probably home with follow up tomorrow Status: Acute Priority: High Comment: Probably pre-renal on CKD 3/4 (baseline Scr 2's) Qualifiers: Chronic kidney disease stage: stage 3 (moderate) (2) Hyperkalemia 1. Stop ARB and spironolactone forever 2. Should be good to go tomorrow Status: Acute Priority: High (3) Hypertensive urgency 1. Med compliance is questionable per primary Analytical Statistician 2. Minoxidil 5 mg BID 3. Lasix 80 mg BID to prevent swelling seen with minoxidil 4. Carvedilol to block reflex tachycardia 5. Reduce verapamil to 120 mg qD/BID based on response of HR and BP to minoxidil 6. Clonidine prn only 7. Fine tune at home Status: Acute Priority: High
[2019-08-31] MEDS: FUROSEMIDE 80 MG TABLET PO SCH (19:05)
[2019-08-31] MEDS ORDERED: cloNIDine HCL 0.1 MG TABLET PO PRN (19:41)
--- NOTE | 2019-08-31 20:06 | Ultrasound Report ---
CLINICAL INFORMATION: Renal failure TECHNIQUE: Grayscale and color flow Doppler spectral imaging COMPARISON: Previous noncontrast enhanced abdominal CT scan dated 02/16/2019. Previous renal duplex study dated 03/29/2019 FINDINGS: Right kidney measures 10.0 x 4.3 x 4.7 cm. There are small cortical cysts. Largest cyst measures only 7 mm. No solid mass. Renal cortex is echogenic consistent with medical renal disease. There no obstructing or nonobstructing calculus. There is no hydronephrosis. Left kidney measures 11.2 x 6.0 x 4.4 cm. Left renal cortex appears thinned and echogenic consistent with medical renal disease. No hydronephrosis. No solid left renal mass. Prevoid bladder volume measures 126 mL. Postvoid residual measures 12 mL. Incidental note is made of multiple hepatic masses. These were identified on 03/29/2019. Contrast enhanced CT scan or MRI scan recommended for further evaluation. IMPRESSION: 1. No hydronephrosis. 2. Echogenic renal cortex bilaterally consistent with medical renal disease 3. Multiple liver masses. Recommend further evaluation with contrast-enhanced MRI scan or CT scan. Interpreted and Authenticated by: Danyel Gorman 08/31/19
[2019-08-31] MEDS: MINOXIDIL 2.5 MG TABLET PO SCH (20:40)
[2019-08-31] MEDS: GEMFIBROZIL 600 MG TABLET PO SCH (20:40)
[2019-08-31] MEDS: rOPINIRole 0.25 MG TABLET PO SCH ×2 (20:41→21:30)
[2019-08-31] MEDS: DOCUSATE SODIUM 100 MG CAPSULE PO SCH (20:42)
[2019-08-31] MEDS: ASTAXANTHIN PO SCH (20:45)
[2019-08-31] MEDS ORDERED: cloNIDine HCL 0.1 MG TABLET PO SCH (21:00)
[2019-08-31] MEDS ORDERED: VERAPAMIL 120 MG TAB.XL.24H PO SCH (21:00)
[2019-08-31] MEDS ORDERED: SENNOSIDES/DOCUSATE SODIUM 1 TAB TABLET PO SCH (21:00)
[2019-08-31] MEDS ORDERED: VERAPAMIL HCL 80 MG TABLET PO SCH (21:00)
[2019-08-31] MEDS ORDERED: traZODone HCL 50 MG TABLET PO SCH (21:00)
[2019-08-31] MEDS ORDERED: OXYBUTYNIN CHLORIDE 5 MG TABLET PO SCH (21:00)
[2019-08-31] MEDS: ACETAMINOPHEN 325 MG TABLET PO PRN (22:01)
[2019-09-01] MEDS: ACETAMINOPHEN 325 MG TABLET PO PRN (02:12)
[2019-09-01] MEDS: 0.9 % SODIUM CHLORIDE 10 ML SYRINGE IV SCH (05:42)
[2019-09-01 05:59] LABS: ALT/SGPT 9 U/l (0-40); AST/SGOT 18 U/l (0-37); Albumin 4.1 gm/dL (3.2-5.2); Albumin/Globulin Ratio 1.4 (1.0-2.3); Alkaline Phosphatase 98 U/L (39-117); Bilirubin,Direct < 0.2 mg/dL (0.0-0.3); Bilirubin,Total 0.3 mg/dL (0.0-1.0); Blood Urea Nitrogen 66 mg/dl (8-23); Calcium 9.6 mg/dl (8.6-10.4); Carbon Dioxide 23 mmol/L (22-30); Glomerular Filtration Rate 17; Glucose 97 mg/dL (70-105); Lactate Dehydrogenase 241 U/L (94-250); Triglycerides 75 mg/dl (<150); Uric Acid 9.9 mg/dL (2.5-8.0)
[2019-09-01 06:12] LABS: Chloride 93 mmol/L (96-108)
[2019-09-01] MEDS ORDERED: FERROUS SULFATE 325 MG TABLET PO SCH (08:00)
[2019-09-01] MEDS: CARVEDILOL 12.5 MG TABLET PO SCH (08:04)
[2019-09-01] MEDS: FUROSEMIDE 80 MG TABLET PO SCH (08:05)
--- NOTE | 2019-09-01 08:34 | Nephrology Progress Note ---
Subjective Patient information: Note initiated : 09/01/19 at 8:31 am Service Date, if different from initiated Date: [] Patient: Kaden Romero 79 y/o M admitted on 08/31/19 for High K. Chief Complaint: [] Principal diagnosis: hyper K and Acute on Chronic renal failure Interval history: Tolerating Med changes. HR increased so increase to verapamil 240 mg qAM Decrease Furosemide to 40 mg BID Continue minoxidil 5 mg po BID and carvedilol 25 mg BID Clonidine 0.1 mg q4 prn Renal U/S :FINDINGS: Right kidney measures 10.0 x 4.3 x 4.7 cm. There are small cortical cysts. Largest cyst measures only 7 mm. No solid mass. Renal cortex is echogenic consistent with medical renal disease. There no obstructing or nonobstructing calculus. There is no hydronephrosis. Left kidney measures 11.2 x 6.0 x 4.4 cm. Left renal cortex appears thinned and echogenic consistent with medical renal disease. No hydronephrosis. No solid left renal mass. Prevoid bladder volume measures 126 mL. Postvoid residual measures 12 mL. Incidental note is made of multiple hepatic masses. These were identified on 03/29/2019. Contrast enhanced CT scan or MRI scan recommended for further evaluation. K in the 5's No objection to D/C with renal f/u and labs later this week or next week. Selected Entries 08/31/19 12:24 08/31/19 20:00 08/31/19 23:39 Pulse Rate [Monitor Reading] 63 95 H 88 Blood Pressure [Left Arm] 173/81 175/95 143/77 09/01/19 05:30 09/01/19 07:17 Pulse Rate [Monitor Reading] 65 86 Blood Pressure [Left Arm] 156/93 163/91 Laboratory Tests 09/01/19 03:45 Sodium 132 L Potassium 5.6 H Chloride 93 L Carbon Dioxide 23 Anion Gap 16.0 BUN 66 H Creatinine 3.3 H GFR Calculation 17 Glucose 97 Uric Acid 9.9 H Calcium 9.6 Phosphorus 5.0 H Magnesium 2.2 Albumin 4.1 Pertinent ROS: Nothing to add Bradycardia resolved...increase verapamil and deecrease lasix Additional PMFSH (Level 3 Only): Nothing to Add Objective - Vital Signs Vital signs: Vital Signs Temp Pulse Pulse Resp BP BP Pulse Ox 09/01/19 07:17 36.5 C 86 16 163/91 96 09/01/19 05:30 37.1 C 65 16 156/93 98 08/31/19 23:39 36.8 C 88 14 143/77 97 08/31/19 20:00 36.8 C 95 H 16 175/95 97 08/31/19 16:47 36.6 C 78 96 08/31/19 16:01 76 153/88 98 08/31/19 14:49 71 144/82 94 08/31/19 12:24 36.4 C 63 18 173/81 100 08/31/19 12:10 36.5 C 57 L 17 173/74 100 08/31/19 11:41 57 L 17 173/74 100 08/31/19 11:21 59 L 18 160/74 96 08/31/19 11:03 62 18 169/84 97 08/31/19 10:41 56 L 14 154/74 97 08/31/19 10:21 18 151/73 08/31/19 10:19 18 155/74 08/31/19 09:45 36.5 C 20 129/70 95 Intake and Output 08/31/19 09/01/19 09/01/19 21:59 05:59 13:59 Intake Total 720 480 Output Total 1775 900 750 Balance -1055 420 -750 Intake: Oral 720 480 Output: Void Amount 1775 900 750 Other: Meal Dinner Percent of Meal Consumed 100% Feeding Ability Independent Urine Appearance Clear Clear Urine Color Pale Bright Yellow Stool Size Large Stool Color Brown Stool Consistency Soft Formed # Bowel Movements 1 Weight 81.42 kg Intake & Output: Intake & Output 08/31/19 09/01/19 09/01/19 21:59 05:59 13:59 Intake Total 720 480 Output Total 1775 900 750 Balance -1055 -420 -750 Weight 81.42 kg Intake: Oral 720 480 Output: Void Amount 1775 900 750 Other: Meal Dinner Percent of Meal Consumed 100% Feeding Ability Independent Urine Appearance Clear Clear Urine Color Pale Bright Yellow Stool Size Large Stool Color Brown Stool Consistency Soft Formed # Bowel Movements 1 - General Appearance General appearance: appears started age, chronically ill, frail EENT: ATNC, PERRL, mucous membranes moist Neck: no JVD, no carotid bruit, supple Respiratory: no kyphosis, no scoliosis, clear Cardiology: no murmurs, no rub, no gallops Gastrointestinal: normoactive bowel sounds, no tenderness, no guarding, no o rganomegaly Integumentary: no rash, warm and dry Neurologic: no focal deficit, no asterixis, alert and oriented x3, reflexes 2+ and symmetric Musculoskeletal: no deformities, no erythema, no cyanosis, no clubbing Psychiatric: mood/affect appropriate - Lab 08/31/19 10:07 09/01/19 03:45 Most recent lab results Calcium 9.6 mg/dl (8.6-10.4) 09/01/19 03:45 Phosphorus 5.0 mg/dL (2.7-4.5) H 09/01/19 03:45 Magnesium 2.2 mg/dL (1.6-2.5) 09/01/19 03:45 - Imaging Kidney/bladder ultrasound: report reviewed - Allied health notes Allied health notes reviewed: nursing (Blood pressure medications updated, discussed changes with patient and , ready to go) Assessment and Plan (1) Renal failure (ARF), acute on chronic 1. Continue to monitor GFR as blood pressure is controlled 2. Goal blood pressure of 130/80 to 140/80 with heart rate less than 100 3. Home medications for blood pressure control are as follows: Verapamil SR 240 mg in the morning Furosemide 40 mg p.o. twice a day Minoxidil 5 mg twice a day Carvedilol 25 mg twice a day PRN clonidine 0.1 mg every 6 hours if blood pressure greater than 180 4. Plan is to titrate minoxidil, diuretic dose, and verapamil to maintain a heart rate in the 60-80 range, minimal or no edema, blood pressure 1 30-1 40 systolic. 5. I emphasized that the renal damage is done the only thing is to prevent further worsening of his renal function, he main gained back some GFR to a creatinine of around 2 or 2.5 off of RAASI 6. Needs frequent follow-up with his regulatory compliance officer Status: Acute Priority: High Comment: Probably pre-renal on CKD 3/4 (baseline Scr 2's) Qualifiers: Chronic kidney disease stage: stage 3 (moderate) (2) Hyperkalemia 1. Safe to discharge 2. Do not use RAASI in this patient as he has proven himself easy to become hyperkalemic 3. No supplemental potassium 4. Twice daily furosemide should promote a kaliuresis Status: Acute Priority: High (3) Hypertensive urgency 1. Accelerated hypertension at the best, if he had acute renal injury other than prerenal azotemia then you can call this malignant hypertension 2. For now the goal blood pressure is to keep less than 180 while adjusting the minoxidil Lasix and verapamil to achieve a goal of 130-140 systolic in the absence of edema and tachycardia. 3. Side effects to work to watch for with minoxidil include peripheral edema, tachycardia, and shortness of breath due to pericardial effusion Status: Acute Priority: High (4) Abnormal CT of liver 1. Given the history of prosthetic cancer treated with radical prostatectomy and radiation therapy, I am concerned that the multiple lesions in his liver may well represent metastatic adenocarcinoma presumably from prostate cancer. 2. Needs a PSA level and evaluation as an outpatient which can be ordered by primary care physician Status: Acute Priority: Medium Comment: Metastatic prostate cancer until proven otherwise - Narrative A/P Narrative: Okay for discharge on new blood pressure regimen as outlined above
[2019-09-01] MEDS ORDERED: CLOPIDOGREL 75 MG TABLET PO SCH (09:00)
[2019-09-01] MEDS ORDERED: MULTIVIT,THER IRON,CA,FA & MIN 1 TABLET PO SCH (09:00)
[2019-09-01] MEDS ORDERED: LOSARTAN 50 MG TABLET PO SCH (09:00)
[2019-09-01] MEDS ORDERED: OXYBUTYNIN CHLORIDE 5 MG TABLET PO SCH (09:00)
[2019-09-01] MEDS ORDERED: PYRIDOXINE 100 MG TABLET PO SCH (09:00)
[2019-09-01] MEDS ORDERED: VERAPAMIL 120 MG TAB.XL.24H PO SCH (09:00)
[2019-09-01] MEDS ORDERED: CITALOPRAM 20 MG TABLET PO SCH (09:00)
[2019-09-01] MEDS: GEMFIBROZIL 600 MG TABLET PO SCH (09:37)
[2019-09-01] MEDS: DOCUSATE SODIUM 100 MG CAPSULE PO SCH (09:38)
[2019-09-01] MEDS: MINOXIDIL 2.5 MG TABLET PO SCH (09:39)
[2019-09-01] MEDS: ASTAXANTHIN PO SCH (09:40)
--- NOTE | 2019-09-01 10:27 | Discharge Summary ---
Medical - DS: Prov Patient information: Note initiated : 09/01/19 at 10:25 am Service Date, if different from initiated Date: [] Patient: Kaden Romero 79 y/o M admitted on 08/31/19 for High K. Chief Complaint: [] Date of admission: 08/31/19 12:03 Discharge date: 09/01/19 Primary care physician: Estevan Carter Consults: 08/31/19 Consult to Physician [CONS] Stat Comment: Consulting Provider: Emmett Chavez Reason For Exam: Physician to Consult 08/31/19 12:03 Consult to Physician [CONS] Routine Comment: Consulting Provider: Joanna Martinez Reason For Exam: Physician to Consult Medical - DS: Meds - Discharge Medications Prescriptions: cloNIDine HCL [Catapres] 0.1 mg PO Q6 PRN #100 tab PRN Reason: BP above 180 mmHg Transmission Status: Received by [facility] Furosemide [Lasix] 40 mg PO BID #60 tab Prescription Printed Minoxidil 5 mg PO BID #120 tab Prescription Printed Active and Home Medications: Home Medications ropinirole 0.5 mg tablet 1 - 2 tab PO QHS 05/25/19 [History Confirmed 08/31/19 Last Taken 08/30/19] trazodone 50 mg tablet 50 mg PO HS tab 08/17/19 [History Confirmed 08/31/19 Last Taken 08/30/19] verapamil 240 mg tablet,extended release 240 mg PO DAILY tab 08/17/19 [History Confirmed 08/31/19 Last Taken 08/30/19] carvedilol 25 mg tablet 25 mg PO BID tab 08/20/19 [History Confirmed 08/31/19 Last Taken 08/30/19] citalopram 10 mg tablet 20 mg PO BID tab 08/20/19 [History Confirmed 08/31/19 Last Taken 08/30/19] clopidogrel 75 mg tablet 37.5 mg PO BID 08/20/19 [History Confirmed 08/31/19 Last Taken 08/30/19] Ascorbate Calcium [Vitamin C] 500 mg PO BID 08/31/19 [History Confirmed 08/31/19 Last Taken 08/30/19] Astaxanthin 4 mg PO BID 08/31/19 [History Confirmed 08/31/19 Last Taken 08/30/19] Biotin 1,000 mcg PO DAILY 08/31/19 [History Confirmed 08/31/19 Last Taken 08/30/19] Cyanocobalamin (Vitamin B-12) [Vitamin B-12] 100 mcg PO DAILY 08/31/19 [History Confirmed 08/31/19 Last Taken 08/30/19] Ferrous Sulfate [Feosol] 325 mg PO DAILY 08/31/19 [History Confirmed 08/31/19 Last Taken 08/30/19] Gemfibrozil [Lopid] 300 mg PO BID 08/31/19 [History Confirmed 08/31/19 Last Taken 08/30/19] Oxybutynin Chloride [Ditropan] 5 mg PO HS 08/31/19 [History Confirmed 08/31/19 Last Taken 08/30/19] Oxybutynin Chloride [Ditropan] 10 mg PO DAILY 08/31/19 [History Confirmed 08/31/19 Last Taken 08/30/19] Pyridoxine [Vitamin B-6] 100 mg PO DAILY 08/31/19 [History Confirmed 08/31/19 Last Taken 08/30/19] Vitamin D3 1,000 units PO BID 08/31/19 [History Confirmed 08/31/19 Last Taken 08/30/19] Furosemide [Lasix] 40 mg PO BID #60 tab 09/01/19 [Rx Last Taken Unknown] Minoxidil 5 mg PO BID #120 tab 09/01/19 [Rx Last Taken Unknown] cloNIDine HCL [Catapres] 0.1 mg PO Q6 PRN #100 tab 09/01/19 [Rx Last Taken Unknown] Medical - DS: Hosp Hospital Course: Discharge diagnosis * Acute hyperkalemia-clinically resolved with Kayexalate * History of hypertension -discharging on medication as per nephrology recommendations * 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 Follow-up outpatient * Restless leg syndrome continue ropinirole * History of CAD continue Plavix/Coreg * Hyperlipidemia continue Lopid * Anxiety disorder continue citalopram Brief hospital course Mr. Romero is a 79 year old M with a history of CKD who underwent routine blood work and was found to have a potassium 6.3. He was directed by bead wire insulator to the ER for management of hyperkalemia. Patient denied associated symptoms including chest pain palpitation. Denies changes in medications or is currently on spironolactone/ARB for hypertension. Repeat potassium 6.2 and subsequently was started on hyperkalemia. Hospitalist service was consulted. At the time of evaluation patient is accompanied with his . He denies any symptoms. He feels his normal baseline state of health. He denies [id number] NSAIDs use. 09/01-patient doing a lot better. No overnight events. No concerns per staff. Potassium down to 5.6 status post Kayexalate. Antihypertensive medication changes made as per nephrology. Follow-up with primary care physician/nephrology as outpatient. Discharge diagnosis: . - Time Spent with Patient Total time spent providing and/or coordinating discharge services: Greater than 30 minutes Medical - DS: Exam - Constitutional Vitals: Vital Signs Temp Pulse Pulse Resp BP BP Pulse Ox 09/01/19 07:17 97.7 F 86 16 163/91 96 09/01/19 05:30 98.8 F 65 16 156/93 98 08/31/19 23:39 98.3 F 88 14 143/77 97 08/31/19 20:00 98.2 F 95 H 16 175/95 97 08/31/19 16:47 97.9 F 78 96 08/31/19 16:01 76 153/88 98 08/31/19 14:49 71 144/82 94 08/31/19 12:24 97.6 F 63 18 173/81 100 08/31/19 12:10 97.7 F 57 L 17 173/74 100 08/31/19 11:41 57 L 17 173/74 100 08/31/19 11:21 59 L 18 160/74 96 08/31/19 11:03 62 18 169/84 97 08/31/19 10:41 56 L 14 154/74 97 Intake and Output 08/31/19 09/01/19 09/01/19 21:59 05:59 13:59 Intake Total 720 480 120 Output Total 1778 900 750 Balance -7576 -092 -320 Intake: Oral 720 480 120 Output: Void Amount 9554 900 750 Other: Meal Dinner Breakfast Percent of Meal Consumed 100% 100% Feeding Ability Independent Independent Urine Appearance Clear Clear Urine Color Pale Bright Yellow Stool Size Large Stool Color Brown Stool Consistency Soft Formed # Bowel Movements 1 Weight 179 lb 8 oz Medical - DS: Data Labs on day of discharge: Labs from last 24 hours 09/01/19 09/01/19 08/31/19 09:46 03:45 18:44 WBC RBC Hgb Hct MCV MCH MCHC RDW Plt Count MPV Gran % Lymph % (Auto) [place] % (Auto) Eos % (Auto) Baso % (Auto) Gran # Lymph # (Auto) [place] # (Auto) Eos # (Auto) Baso # (Auto) ABG Methemoglobin VBG pH VBG pCO2 VBG pO2 VBG HCO3 VBG Total CO2 VBG O2 Saturation VBG Base Excess Carboxyhemoglobin Total Hemoglobin O2 Delivery Level Sodium 132 L Potassium 5.6 H 5.9 H* Chloride 93 L Carbon Dioxide 23 Anion Gap 16.0 BUN 66 H Creatinine 3.3 H GFR Calculation 17 Glucose 97 Uric Acid 9.9 H Calcium 9.6 Phosphorus 5.0 H Magnesium 2.2 Total Bilirubin 0.3 Direct Bilirubin < 0.2 GGT 43 AST 18 ALT 9 Alkaline Phosphatase 98 Lactate Dehydrogenase 241 Total Protein 7.1 Albumin 4.1 Globulin 3.0 Albumin/Globulin Ratio 1.4 Triglycerides 75 Prostate Specific Ag Pending Free PSA Pending Free & Total PSA Pending 08/31/19 08/31/19 08/31/19 11:03 10:07 10:06 WBC 6.9 RBC 3.38 L Hgb 10.3 L Hct 31.3 L MCV 92.6 MCH 30.5 MCHC 33.0 RDW 14.0 Plt Count 250 MPV 9.8 Gran % 59.2 Lymph % (Auto) 21.7 [place] % (Auto) 13.8 H Eos % (Auto) 4.8 Baso % (Auto) 0.5 Gran # 4.1 Lymph # (Auto) 1.5 [place] # (Auto) 0.9 Eos # (Auto) 0.3 Baso # (Auto) 0 ABG Methemoglobin 0.3 L VBG pH 7.31 L VBG pCO2 48.5 VBG pO2 55 H VBG HCO3 23.7 L VBG Total CO2 25.2 VBG O2 Saturation 74.1 H VBG Base Excess -2.7 L Carboxyhemoglobin 4.4 H Total Hemoglobin 10.1 L O2 Delivery Level Not Reportable Sodium 131 L Potassium 6.3 H* Chloride 100 Carbon Dioxide 21 L Anion Gap 10.0 BUN 68 H Creatinine 3.1 H GFR Calculation 18 Glucose 94 Uric Acid Calcium 10.0 Phosphorus Magnesium Total Bilirubin 0.2 Direct Bilirubin GGT AST 19 ALT 9 Alkaline Phosphatase 94 Lactate Dehydrogenase Total Protein 7.3 Albumin 4.4 Globulin 2.9 Albumin/Globulin Ratio 1.5 Triglycerides Prostate Specific Ag Free PSA Free & Total PSA Medical - DS: A/P - Patient/Caregiver Discharge Instructions Activity: increase activity as tolerated Diet: Renal Additional Instructions: Follow-up PCP in 5 to 7 days follow-up nephrology in 1 week Continue antihypertensive medications as per nephrology Prescriptions: cloNIDine HCL [Catapres] 0.1 mg PO Q6 PRN #100 tab PRN Reason: BP above 180 mmHg Transmission Status: Received by [facility] Furosemide [Lasix] 40 mg PO BID #60 tab Prescription Printed Minoxidil 5 mg PO BID #120 tab Prescription Printed - Problem Maintenance (1) Hyperkalemia Status: Acute - Follow up Plan Follow up with: Joanna Martinez MD [Physician] - Neville Henriquez MD [Physician] - 09/03/19 7:45 am Estevan Carter MD [Primary Care Provider] - 09/07/19 3:20 pm Disposition: Home, Self-Care Care Plan Goals: This discharge packet is provided to you to help keep you informed about your care. We want to ensure you get everything you need when you go home. You will also be receiving a call from us in a few days to follow up with you and see how you are doing since your discharge. This gives us a chance to listen to any concerns you maybe experiencing since you were discharged or any additional needs you may have, as well as providing us feedback on your care experience. We strive to always provide excellent care and thank you for your feedback and for choosing [facility]. Prognosis: Fair Rehab Potential: Fair I certify that the patient requires SNF services: No Overall status at discharge: patient is progressing back to baseline Medical - DS: Qual - VTE Deep Vein Thrombosis/Pulmonary Embolism Present on Admission: No
[2019-09-01 11:33] LABS: Prostate Specific Antigen 0.14 ng/ml (0.0-6.5)
[2019-09-01 11:35] LABS: Free Prostate Specific Antigen 0.03 ng/ml
[2019-09-01] MEDS ORDERED: FUROSEMIDE 40 MG TABLET PO SCH (16:00)
== END 2019-09-01 11:10 | disposition home or self-care (01) ==
LOC: ED 09:42 → ICU 09:42
PROVIDERS: ADMIT Internal Medicine; ATTEND Internal Medicine

== ENCOUNTER 2019-11-21 07:36 | Inpatient (IN) ==
[2019-11-21] MEDS ORDERED: IPRATROPIUM/ALBUTEROL 3 ML AMPUL.NEB NEB ONE (07:51)
--- NOTE | 2019-11-21 08:15 | Emergency Department Note ---
SOB HPI - General Chief Complaint: Shortness of Breath/Dyspnea Stated Complaint: shortness of breath Time Seen by Provider: 11/21/19 07:41 Mode of arrival: ambulatory - History of Present Illness This pleasant 79-year-old gentleman has had some cough that is been worsening with worsening shortness of breath in the last 5 days. It is productive with some yellow-holbrook phlegm. 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 Patient's reports that he had a similar episode of lung problems a year ago and was shipped to [facility]. His ultimate diagnosis was Gil pneumo viral pneumonia. Patient has some chronic constipation problems and is feeling abdominal pain and discomfort and bloated. No hematochezia, diarrhea or vomiting but feels nauseated. The abdominal pain was primarily at the site of the biopsy on the right. REVIEW OF SYSTEMS: Denies fevers or feverishness but feels cold a lot of the time. No shivering. No sweats. He has had poor appetite chronically but even worse in the last 5 days. He is lost 3 or 4 pounds. Some mild sore throat. No runny nose or nasal congestion No chest pain Has been doing some wheezing in his chest. Denies dysuria. No back pain Some lightheaded dizziness No anxiety or depression. - Related Data Home Medications Medication Instructions Recorded Confirmed ropinirole 0.5 mg tablet 1 - 2 tab PO QHS 05/25/19 11/02/19 trazodone 50 mg tablet 50 mg PO HS tab 08/17/19 11/02/19 carvedilol 25 mg tablet 25 mg PO BID tab 08/20/19 11/02/19 citalopram 10 mg tablet 20 mg PO BID tab 08/20/19 11/02/19 clopidogrel 75 mg tablet 37.5 mg PO BID 08/20/19 11/02/19 Ascorbate Calcium [Vitamin C] 500 mg PO BID 08/31/19 11/02/19 Astaxanthin 4 mg PO BID 08/31/19 11/02/19 Biotin 1,000 mcg PO DAILY 08/31/19 11/02/19 Cyanocobalamin (Vitamin B-12) 100 mcg PO DAILY 08/31/19 11/02/19 [Vitamin B-12] Ferrous Sulfate [Feosol] 325 mg PO DAILY 08/31/19 11/02/19 Oxybutynin Chloride [Ditropan] 5 mg PO HS 08/31/19 11/02/19 Oxybutynin Chloride [Ditropan] 10 mg PO DAILY 08/31/19 11/02/19 Pyridoxine [Vitamin B-6] 100 mg PO DAILY 08/31/19 11/02/19 Vitamin D3 1,000 units PO BID 08/31/19 11/02/19 gemfibrozil 600 mg tablet 300 mg PO QDAY tab 09/03/19 11/02/19 arginine (L-arginine) 500 mg 500 mg PO QDAY cap 11/02/19 11/02/19 capsule glutamine 500 mg tablet 500 mg PO QDAY 11/02/19 11/02/19 isosorbide mononitrate 20 mg tablet 20 mg PO QDAY tab 11/02/19 11/02/19 levocarnitine 500 mg tablet 500 mg PO QDAY tab 11/02/19 11/02/19 magnesium oxide 420 mg tablet 420 mg PO QDAY 11/02/19 11/02/19 milk thistle 175 mg tablet 175 mg PO QDAY tab 11/02/19 11/02/19 multivitamin with minerals 1 tab PO TID tab 11/02/19 verapamil 240 mg tablet,extended 120 mg PO BID tab 11/02/19 11/02/19 release Previous Rx's Medication Instructions Recorded Furosemide [Lasix] 40 mg PO BID #60 tab 09/01/19 clonidine HCl 0.1 mg tablet 0.1 mg PO BID #100 tab 11/02/19 potassium gluconate 500 mg (83 mg) 500 mg PO QDAY #30 tab 11/08/19 tablet Allergies Allergy/AdvReac Type Severity Reaction Status Date / Time morphine Allergy Severe code Verified 11/02/19 10:17 benazepril Allergy Unknown Unknown Verified 11/02/19 10:17 amlodipine [From Norvasc] AdvReac Mild Increased Verified 11/02/19 10:17 HR bisoprolol [From Ziac] AdvReac Mild Increased Verified 11/02/19 10:17 HR diltiazem [From Cardizem] AdvReac Mild dysrhythmia Verified 11/02/19 10:17 s hydrochlorothiazide AdvReac Mild Increased Verified 02/11/20 10:17 [From Ziac] HR simvastatin [From Zocor] AdvReac Mild A fib Verified 11/02/19 10:17 Terazosin [From Hytrin] AdvReac Mild Palps & Verified 11/02/19 10:17 skipped beat mytran Allergy Mild Unknown Uncoded 11/02/19 10:17 Past Medical History - Past Medical History Medical history: Reports: atrial fibrillation, hypertension - Social History smoking status: Former smoker Alcohol use: Reports: None Drug use: Reports: none Physical Exam Limitations: no limitations General appearance: alert, in no apparent distress Head: atraumatic, normocephalic Eye: Present: normal appearance, PERRL, EOMI. Absent: scleral icterus, conjunctival injection ENT: Present: normal oropharynx, mucous membranes moist Neck: Present: trachea midline. Absent: lymphadenopathy, thyromegaly Chest: Present: symmetric chest wall rise Respiratory: Present: rales/crackles (coarseness in anterior and posterior lung howell bilaterally.). Absent: respiratory distress, wheezes, stridor, accessory muscle use, prolonged expiratory phase Cardiovascular: Present: regular rate, normal rhythm. Absent: systolic murmur, diastolic murmur Abdominal: Present: soft, distention (mildly). Absent: tenderness, guarding, rebound, rigidity, organomegaly, mass Extremities: Absent: pedal edema, pretibial edema, calf tenderness Back: Absent: CVA tenderness (R), CVA tenderness (L), spinous process tenderness Neurological: Present: alert, oriented X3 Psychiatric: Present: normal affect, normal mood Skin: Present: warm, dry Course Vital Signs Temperature 97.7 F 11/21/19 07:37 Pulse Rate 91 H 11/21/19 07:37 Respiratory Rate 16 11/21/19 07:37 Blood Pressure 176/92 11/21/19 07:37 Pulse Oximetry (%) 85 L 11/21/19 07:37 Temperature 97.7 F 11/21/19 07:37 Pulse Rate 63 11/21/19 09:30 Respiratory Rate 18 11/21/19 09:30 Blood Pressure 155/82 11/21/19 09:30 Pulse Oximetry (%) 95 11/21/19 09:30 Shortness of Breath/Dyspnea - [facility] Narrative Medical decision making narrative: 7:50 AM -interviewed and examined. Junky sounding lungs with hypoxia. Will do flu, 2 view chest x-ray, nebulizer. Will do plain film abdomen and also ul trasound looking for fluid. I discussed with patient and his his CODE STATUS. At present he is a full code and desires such to be. I briefly reviewed with him and his that based on his age and underlying medical conditions his prognosis would be significantly poor and there would be a high likelihood of significant disability if he were resuscitated successfully. 8:30 AM - chest x-ray on my review includes an increase in the markings and infiltrates compared to January 2019 although it appears that there is some scar tissue. These are bilateral patchy infiltrates in the lower lobes. The plain film x-ray of the abdomen suggest a significant amount of stool in the left colon but no dilated bowel loops or air-fluid levels. I discussed with patient and his his living well. He remains as a full code at this point in time. I pointed out the chances of returning to a good qu ality of life with his medical problems and age, after a successful resuscitation, are relatively low and the risks of severe debility are relatively high. Labs returned with a sodium of 119. Procalcitonin 0.27 White count normal Lactic acid normal Creatinine 2.2 9:02 AM - I spoke with Dr. Harrison, radiologist to believes that his chest x-ray is much worse and he is up the consideration of aspiration when there is bilateral lower lobes. Consider swallowing dysfunction and evaluation. 9:24 AM - preliminary ultrasound report of a small right pleural effusion but no significant ascites. 9:40 AM - I spoke with Dr. Genaro Neves, hospitalist, who kindly accepts this patient. - Lab Data Result diagrams: 11/21/19 08:10 11/21/19 08:10 Lab Results 11/21/19 11/21/19 11/21/19 Range/Units 08:10 08:10 08:10 WBC 10.8 (4.50-11.00) K/mcL RBC 3.11 L (4.63-6.08) M/mcL Hgb 9.1 L (13.7-17.5) g/dL Hct 26.2 L (40.1-51.0) % MCV 84.2 (80.0-100.0) fL MCH 29.3 (26.0-34.0) pg MCHC 34.7 (31.0-36.0) g/dL RDW 12.8 (11.5-14.5) % Plt Count 256 (140-440) K/mcL MPV 12.1 H (7.4-10.4) fL Gran % 83.7 H (38.0-78.0) % Lymph % (Auto) 6.6 L (15.5-49.0) % [place] % (Auto) 9.0 (1.0-12.0) % Eos % (Auto) 0.6 (0.0-7.0) % Baso % (Auto) 0.1 (0.0-2.0) % Gran # 9.01 H (1.80-8.00) K/mcL Lymph # (Auto) 0.71 L (1.50-4.80) K/mcL [place] # (Auto) 0.97 H (0.10-0.90) K/mcL Eos # (Auto) 0.06 (0.00-0.70) K/mcL Baso # (Auto) 0.01 (0.00-0.30) K/mcL VBG Lactic Acid 1.2 (0.5-2.0) mmol/L Sodium 119 L* (133-145) mmol/L Potassium 3.0 L (3.3-5.1) mmol/L Chloride 80 L (96-108) mmol/L Carbon Dioxide 25 (22-30) mmol/L Anion Gap 14.0 (8-16) BUN 30 H (8-23) mg/dl Creatinine 2.2 H (0.7-1.2) mg/dl GFR Calculation 27 Glucose 114 H (70-105) mg/dL Calcium 8.3 L (8.6-10.4) mg/dl Total Bilirubin 0.8 (0.0-1.0) mg/dL AST 29 (0-37) U/l ALT 10 (0-40) U/l Alkaline Phosphatase 104 (39-117) U/L Total Protein 6.3 (5.9-8.4) gm/dL Albumin 3.7 (3.2-5.2) gm/dL Globulin 2.6 (2.2-3.7) gm/dL Albumin/Globulin Ratio 1.4 (1.0-2.3) Procalcitonin (<0.10) ng/mL 11/21/19 Range/Units 08:10 WBC (4.50-11.00) K/mcL RBC (4.63-6.08) M/mcL Hgb (13.7-17.5) g/dL Hct (40.1-51.0) % MCV (80.0-100.0) fL MCH (26.0-34.0) pg MCHC (31.0-36.0) g/dL RDW (11.5-14.5) % Plt Count (140-440) K/mcL MPV (7.4-10.4) fL Gran % (38.0-78.0) % Lymph % (Auto) (15.5-49.0) % [place] % (Auto) (1.0-12.0) % Eos % (Auto) (0.0-7.0) % Baso % (Auto) (0.0-2.0) % Gran # (1.80-8.00) K/mcL Lymph # (Auto) (1.50-4.80) K/mcL [place] # (Auto) (0.10-0.90) K/mcL Eos # (Auto) (0.00-0.70) K/mcL Baso # (Auto) (0.00-0.30) K/mcL VBG Lactic Acid (0.5-2.0) mmol/L Sodium (133-145) mmol/L Potassium (3.3-5.1) mmol/L Chloride (96-108) mmol/L Carbon Dioxide (22-30) mmol/L Anion Gap (8-16) BUN (8-23) mg/dl Creatinine (0.7-1.2) mg/dl GFR Calculation Glucose (70-105) mg/dL Calcium (8.6-10.4) mg/dl Total Bilirubin (0.0-1.0) mg/dL AST (0-37) U/l ALT (0-40) U/l Alkaline Phosphatase (39-117) U/L Total Protein (5.9-8.4) gm/dL Albumin (3.2-5.2) gm/dL Globulin (2.2-3.7) gm/dL Albumin/Globulin Ratio (1.0-2.3) Procalcitonin 0.27 (<0.10) ng/mL Disposition Pt seen by PIGMENT SUPPLIER/PA only: No Clinical Impression: Hypoxia, Hyponatremia, Chronic kidney disease, stage III (moderate), Full code status Pneumonia of both lower lobes Qualifiers: Pneumonia type: due to unspecified organism Qualified Code(s): J18.9 - Pne umonia, unspecified organism Disposition: Xfer As Inpt ([facility]) Condition: Fair Referrals: Estevan Carter MD [Primary Care Provider] -
[2019-11-21 08:54] LABS: Basophils # (Auto) 0.01 K/mcL (0.00-0.30); Basophils % (Auto) 0.1 % (0.0-2.0); Eosinophils # (Auto) 0.06 K/mcL (0.00-0.70); Eosinophils % (Auto) 0.6 % (0.0-7.0); Granulocytes % (Auto) 83.7 % (38.0-78.0); Hematocrit 26.2 % (40.1-51.0); Hemoglobin 9.1 g/dL (13.7-17.5); Lymphocytes # (Auto) 0.71 K/mcL (1.50-4.80); Lymphocytes % (Auto) 6.6 % (15.5-49.0); Mean Cell Volume 84.2 fL (80.0-100.0); Mean Corpuscular HGB Conc 34.7 g/dL (31.0-36.0); Mean Platelet Volume 12.1 fL (7.4-10.4); Monocytes # (Auto) 0.97 K/mcL (0.10-0.90); Platelet Count 256 K/mcL (140-440); RBC 3.11 M/mcL (4.63-6.08); Red Cell Distribution Width 12.8 % (11.5-14.5); WBC 10.8 K/mcL (4.50-11.00)
[2019-11-21 09:12] LABS: ALT/SGPT 10 U/l (0-40); AST/SGOT 29 U/l (0-37); Albumin 3.7 gm/dL (3.2-5.2); Albumin/Globulin Ratio 1.4 (1.0-2.3); Alkaline Phosphatase 104 U/L (39-117); Bilirubin,Total 0.8 mg/dL (0.0-1.0); Calcium 8.3 mg/dl (8.6-10.4); Carbon Dioxide 25 mmol/L (22-30); Globulin 2.6 gm/dL (2.2-3.7); Glomerular Filtration Rate 27; Glucose 114 mg/dL (70-105)
[2019-11-21 09:31] LABS: Blood Urea Nitrogen 30 mg/dl (8-23); Chloride 80 mmol/L (96-108)
[2019-11-21] MEDS ORDERED: rOPINIRole 0.25 MG TABLET PO ONE (09:53)
[2019-11-21] MEDS ORDERED: cefTRIAXone 1 GM VIAL IV ONE (10:02)
[2019-11-21] MEDS ORDERED: AZITHROMYCIN 500 MG in DEXTROSE 5% IN WATER 250 ML IV ONE (10:03)
--- NOTE | 2019-11-21 10:50 | Internal Med History&Physical ---
Medical - H&P: HPI Patient information: Note initiated : 11/21/19 at 10:50 am Service Date, if different from initiated Date: [] Patient: Kaden Romero 79 y/o M admitted on for shortness of breath. Chief Complaint: [] History of present illness: Mr. Romero is a 79 year old M with a history of CKD, hypertension, restless leg syndrome who presents with progressive dyspnea. Patient's past history is significant for a hospitalization with hyper tension back in August at which time multiple liver masses were found. 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 Post biopsy, the patient did have some abdominal pain which had resolved. He l eft the biopsy with a sore throat which has worsened and developed into a cough as well as dyspnea. He was seen by his PCP and had a rapid strep was negative. His cough has persisted and is been productive intermittently of yellow/holbrook phlegm. He has not had fever, but feels cold. He also has some pain in his chest with coughing. His is heard him wheezing. During this time he is also had progressive dyspnea. He also feels is difficult to take a deep breath secondary to abdominal bloating. He presents to the ED for evaluation. Patient is also noted post biopsy has become constipated and has had increased bloating. He has had decreased bowel movements. He had post biopsy pain which is resolved, he did not use opioids for pain control. He has had no nausea or vomiting. His is also noted that he has had a poor appetite that is been progressively worse since August. He has had decreased oral intake and last week or so an increased amount of free water. He was recently started on potassium tablets, is picked them up but has not started taking them yet. In the emergency department, the patient was hypoxic with room air sats of 85% in triage. Chest radiograph reveals worsening bilateral airspace disease as compared to a film from last January. Procalcitonin was mildly elevated 0.27, white count normal at 10,000. Patient improved slightly after DuoNeb, but with findings of pneumonia and hypoxia will be admitted for further treatment. No headache, no vision change. Sore throat is slightly improving. No neck pain or stiffness. No dysuria, normal urine output. He has generalized weakness. No rashes, no easy bruising or bleeding. All systems: reviewed and no additional remarkable complaints except as stated Medical - H&P: PMH Medical history: Hyperaldosteronism, unspecified (Chronic) 2 out of 3 elevated aldosterone levels No evidence of adrenal hyperplasia or adrenal adenoma Reading levels are consistently suppressed and the plasma aldosterone to PRA ratio is when measured are high CKD (chronic kidney disease) (Chronic) Anticipate improvement back to a creatinine in the 2 range Resistant hypertension (Chronic) Easily controlled with the addition of minoxidil History of melanoma (Chronic ~2013) Taken off left shoulder, face and scalp at [facility] History of skin cancer (Chronic) Many skin cancer surgeries Restless leg syndrome (Chronic) Hyperlipidemia (Chronic) History of adenocarcinoma of prostate (Chronic) Persistent proteinuria (Chronic) Internal hemorrhoids with complication (Chronic) Urge incontinence (Chronic) Chronic foot pain (Chronic) Peripheral edema (Chronic) Depression (Chronic) Seborrheic keratosis (Chronic) Lentigo (Chronic) Hemangioma (Chronic) Actinic keratosis (Chronic) Seborrheic dermatitis (Chronic) Atopic dermatitis (Chronic) Arthritis (Chronic) Balanitis (Chronic) Edema (Chronic) Palpitations (Chronic) Paroxysmal supraventricular tachycardia (Chronic) Hypertensive heart disease (Chronic) Dissection of aortic arch (Chronic) Surgical history: H/O left inguinal hernia repair (Chronic) H/O radical prostatectomy (Chronic ~2008) For carcinoma Pertinent family history: Father , From [facility] 61 CAD (coronary artery disease) Mother CAD (coronary artery disease) had rheumatic fever as a child Brother No known health problems Brother Cancer Sister CVA (cerebral vascular accident) Sister Cancer Lung Sister No known health problems Social history: housing: house marital status: service: Yes ([employer]) occupational status: retired occupation: Retired from [employer] smoking status: Former smoker quit date: 09/22/84 alcohol intake frequency: does not drink substance use type: does not use Medical - H&P: Meds Home Medications Medication Instructions Recorded Confirmed Type ropinirole 0.5 mg tablet 2 - 4 tab PO QHS 05/25/19 11/21/19 History trazodone 50 mg tablet 50 mg PO HS tab 08/17/19 11/21/19 History carvedilol 25 mg tablet 25 mg PO BID tab 08/20/19 11/21/19 History citalopram 10 mg tablet 20 mg PO BID tab 08/20/19 11/21/19 History clopidogrel 75 mg tablet 37.5 mg PO BID 08/20/19 11/21/19 History Ascorbate Calcium [Vitamin C] 500 mg PO BID 08/31/19 11/21/19 History Biotin 1,000 mcg PO DAILY 08/31/19 11/21/19 History Cyanocobalamin (Vitamin B-12) 100 mcg PO DAILY 08/31/19 11/21/19 History [Vitamin B-12] Ferrous Sulfate [Feosol] 325 mg PO DAILY 08/31/19 11/21/19 History Oxybutynin Chloride [Ditropan] 5 mg PO HS 08/31/19 11/21/19 History Oxybutynin Chloride [Ditropan] 10 mg PO DAILY 08/31/19 11/21/19 History Pyridoxine [Vitamin B-6] 100 mg PO DAILY 08/31/19 11/21/19 History Vitamin D3 1,000 units PO BID 08/31/19 11/21/19 History Furosemide [Lasix] 40 mg PO BID #60 tab 09/01/19 11/21/19 Rx gemfibrozil 600 mg tablet 150 mg PO QDAY tab 09/03/19 11/21/19 History arginine (L-arginine) 500 mg 500 mg PO QDAY cap 11/02/19 11/21/19 History capsule clonidine HCl 0.1 mg tablet 0.1 mg PO BID #100 tab 11/02/19 11/21/19 Rx glutamine 500 mg tablet 500 mg PO QDAY 11/02/19 11/21/19 History isosorbide mononitrate 20 mg tablet 20 mg PO QDAY tab 11/02/19 11/21/19 History magnesium oxide 420 mg tablet 420 mg PO QDAY 11/02/19 11/21/19 History milk thistle 175 mg tablet 175 mg PO QDAY tab 11/02/19 11/21/19 History multivitamin with minerals 1 tab PO TID tab 11/02/19 11/21/19 History verapamil 240 mg tablet,extended 120 mg PO BID tab 11/02/19 11/21/19 History release Allergies Allergy/AdvReac Type Severity Reaction Status Date / Time morphine Allergy Severe code Verified 11/02/19 10:17 benazepril Allergy Unknown Unknown Verified 11/02/19 10:17 amlodipine [From Norvasc] AdvReac Mild Increased Verified 11/02/19 10:17 HR bisoprolol [From Ziac] AdvReac Mild Increased Verified 11/02/19 10:17 HR diltiazem [From Cardizem] AdvReac Mild dysrhythmia Verified 11/02/19 10:17 s hydrochlorothiazide AdvReac Mild Increased Verified 11/02/19 10:17 [From Ziac] HR simvastatin [From Zocor] AdvReac Mild A fib Verified 11/02/19 10:17 Terazosin [From Hytrin] AdvReac Mild Palps & Verified 11/02/19 10:17 skipped beat mytran Allergy Mild Unknown Uncoded 11/02/19 10:17 Medical - H&P: Exam - Constitutional Vitals: Temp Pulse Resp BP Pulse Ox 97.7 F 67 19 178/89 92 11/21/19 07:37 11/21/19 10:16 11/21/19 10:02 11/21/19 10:16 11/21/19 10:16 Exam: GENERAL: Alert, oriented, in mild distress. Cooperative, appears stated age. HEENT: Atraumatic. PERRL at 5 mm, conjunctiva clear, no scleral icterus. Hearing grossly intact. Oropharynx with moist mucous membranes, no lip or gum lesions, no pharyngeal erythema or exudate. Tongue midline, palate rises symmetrically. NECK: Supple without meningismus, no thyromegaly RESPIRATORY: Scattered coarse breath sounds with rhonchi throughout both lung howell with scattered expiratory wheezes. Respiratory effort is mildly labored. CARDIOVASCULAR: Regular rate and rhythm, not tachycardic, no murmur appreciated. Trace peripheral edema. Carotid pulses 1+ without bruit. GI: Abdomen soft, nontender, no guarding or rebound. Bowel sounds are present. MUSCULOSKELETAL: No joint erythema or swelling, normal range of motion in all extremities. SKIN: Warm, dry. Skin turgor decreased. NEUROLOGIC: Cranial nerves II through XII grossly intact. Muscle mass normal for age. Strength 5/5 in the upper and lower extremities. Sensation intact to light touch bilaterally. PSYCHIATRIC: Alert, oriented x3, mood and affect congruent to situation, normal insight. Medical - H&P: Reslt - Labs CBC & Chem 7: 11/21/19 08:10 11/21/19 12:11 Labs: Short CBC 11/21/19 Range/Units 08:10 WBC 10.8 (4.50-11.00) K/mcL Hgb 9.1 L (13.7-17.5) g/dL Hct 26.2 L (40.1-51.0) % Plt Count 256 (140-440) K/mcL BMP 11/21/19 08:10 Sodium 119 L* Potassium 3.0 L Chloride 80 L Carbon Dioxide 25 BUN 30 H Creatinine 2.2 H Glucose 114 H Calcium 8.3 L Liver Function 11/21/19 Range/Units 08:10 Total Bilirubin 0.8 (0.0-1.0) mg/dL AST 29 (0-37) U/l ALT 10 (0-40) U/l Alkaline Phosphatase 104 (39-117) U/L Albumin 3.7 (3.2-5.2) gm/dL - Imaging and Cardiology Chest x-ray Status: image reviewed by me Additional comments: IMPRESSION: Moderate patchy alveolar infiltrates in both lower and left upper lobes with small bilateral pleural effusions. Consider aspiration pneumonia. US - abdomen Additional comments: IMPRESSION: Multiple hepatic lesions suspicious for metastases. The liver was normal on a CT less than one year prior. Suggest: Repeat abdomen and pelvic CT with intravenous and oral contrast Abdominal x-ray Status: image reviewed by me Additional comments: IMPRESSION: Normal abdomen Medical - H&P: A/P - Narrative A/P Narrative: 79-year-old male presenting with progressive dyspnea and productive cough. #Pneumonia. Patient with bilateral infiltrates. Procalcitonin mildly elevated suggesting bacterial infection, normal white count. He has had subjective fevers and chills. Last hospitalized in early August, did have a biopsy but suspect community-acquired or aspiration. #Hyponatremia. Serum sodium 119 at presentation. The patient has decreased oral intake and increased free water. Suspect hypovolemic hyponatremia. Will need to be careful with fluid resuscitation to avoid overcorrection. #Hypokalemia. May be diuretic related. Patient has not started taking his potassium supplements #CKD. Creatinine actually appears improved over past few readings. #Hypertension. Was on minoxidil for a while, medications have been adjusted by nephrology. History of hyperkalemia while on anti-renin/cyn meds #Restless leg syndrome. Generally takes 2 ropinirole at bedtime, 2 further if not effective. #[place]-grade smooth muscle differentiatedon recent liver biopsy. Plan: Inpatient admission to PCU Continue ceftriaxone and azithromycin started in ED Check urine sodium and awesome's to help differentiate cause hyponatremia Low-dose normal saline infusion Serial sodiums DuoNeb Guaifenesin Flutter valve Continue home antihypertensives CODE STATUS: Full code Prophylaxis: Heparin
[2019-11-21] MEDS ORDERED: ONDANSETRON 4 MG/2 ML VIAL IV PRN (11:28)
[2019-11-21] MEDS ORDERED: LACTULOSE 20 GM/30 ML ORAL.SOL PO PRN (11:28)
[2019-11-21] MEDS ORDERED: SENNOSIDES 1 TABLET PO PRN (11:28)
[2019-11-21] MEDS ORDERED: 0.9 % SODIUM CHLORIDE 1,000 ML IV SCH (11:28)
[2019-11-21] MEDS ORDERED: IPRATROPIUM/ALBUTEROL 3 ML AMPUL.NEB NEB PRN (11:28)
[2019-11-21] MEDS ORDERED: FLEETS ADULT ENEMA PR PRN (11:28)
[2019-11-21] MEDS ORDERED: POTASSIUM CHLORIDE 20 MEQ PACKET PO ONE (11:28)
[2019-11-21] MEDS ORDERED: MAGNESIUM HYDROXIDE 30 ML ORAL.SUSP PO PRN (11:28)
[2019-11-21] MEDS: 0.9 % SODIUM CHLORIDE 10 ML SYRINGE IV SCH ×2 (13:02→21:59)
[2019-11-21 13:35] LABS: Osmolality,Urine 290 mOsm/kg (80-1000); Sodium, Urine Random < 20 mmol/L
--- NOTE | 2019-11-21 13:38 | XRay Report ---
CLINICAL INFORMATION: pain, bloating, constipation COMPARISON: None. FINDINGS: The stool gas pattern is unremarkable. There is no free air, soft tissue mass, organomegaly or pathologic calcification. IMPRESSION: Normal abdomen Interpreted and Authenticated by: Danyel Harrison 11/21/19
--- NOTE | 2019-11-21 13:38 | XRay Report ---
CLINICAL INFORMATION: shortness of breath COMPARISON: 02/08/2019 FINDINGS: Mild cardiomegaly has increased slightly. Mediastinum and pulmonary vessels are normal. Moderate patchy alveolar infiltrates are seen throughout both lower and left upper lobes with small bilateral pleural effusions. IMPRESSION: Moderate patchy alveolar infiltrates in both lower and left upper lobes with small bilateral pleural effusions. Consider aspiration pneumonia. Interpreted and Authenticated by: Danyel Harrison 11/21/19
--- NOTE | 2019-11-21 13:44 | Ultrasound Report ---
CLINICAL INFORMATION: abdom pain, bloating COMPARISON: Noncontrast abdomen pelvic CT 02/08/2019. FINDINGS: The gallbladder is surgically absent. Common bile duct is normal caliber: 5 mm. Liver is normal size with heterogeneous echotexture. There are multiple solid hypoechoic vascular lesions are disseminated throughout the liver and range up to 5.5 cm in the right hepatic lobe. These are new since abdominal CT from 02/16/2019. Pancreas is unremarkable. Minor ascites in the perihepatic region with a small right pleural effusion IMPRESSION: Multiple hepatic lesions suspicious for metastases. The liver was normal on a CT less than one year prior. Suggest: Repeat abdomen and pelvic CT with intravenous and oral contrast Interpreted and Authenticated by: Danyel Harrison 11/21/19
[2019-11-21] MEDS ORDERED: ISOSORBIDE MONONITRATE 20 MG TABLET PO ONE (13:47)
[2019-11-21] MEDS ORDERED: VERAPAMIL 120 MG TAB.XL.24H PO ONE (13:47)
[2019-11-21] MEDS ORDERED: cloNIDine HCL 0.1 MG TABLET PO SCH (14:00)
[2019-11-21] MEDS: CARVEDILOL 12.5 MG TABLET PO SCH ×2 (14:17→16:42)
[2019-11-21] MEDS: ACETAMINOPHEN 325 MG TABLET PO PRN (14:25)
[2019-11-21] MEDS ORDERED: FUROSEMIDE 40 MG/4 ML VIAL IV ONE ×2 (14:58)
[2019-11-21] MEDS ORDERED: hydrALAZINE 20 MG/ML VIAL IV ONE (14:58)
[2019-11-21] MEDS ORDERED: POTASSIUM CHLORIDE 20 MEQ TABLET PO ONE ×2 (15:09→15:34)
--- NOTE | 2019-11-21 15:40 | XRay Report ---
CLINICAL INFORMATION: Follow-up infiltrates. Respiratory distress COMPARISON: 11/21/2019 0800 hours FINDINGS: Moderate infiltrates in both mid and lower lungs show slight progression - particularly on the left side. Moderate cardiomegaly is unchanged. Mediastinum and pulmonary vessels are normal. No effusions. IMPRESSION: Moderate infiltrates in both mid and lower lungs, show modest progression - particularly on the left side since x-ray seven hours prior Interpreted and Authenticated by: Danyel Harrison 11/21/19
--- NOTE | 2019-11-21 17:05 | Critical Care Progress Note ---
Critical Care Note - Narrative Summary: Progress Note initiated : 11/21/19 at 5:00 pm Service Date, if different from initiated Date: [] Patient: Kaden Romero 79 y/o M admitted on 11/21/19 for shortness of breath. Called to see the patient secondary to fairly abrupt onset of significant dyspnea and hypoxia. S: Patient complaining of difficulty breathing, states he cannot catch his breath O: Oxygen saturations in the high 80s on facemask at 6 L Blood pressure [id number] systolic General: Looks anxious and in moderate distress Chest: Crackles in lower lung howell, rhonchi scattered throughout Cardiovascular: Regular, not tachycardic Abdomen: Mildly firm with palpation Repeat serum sodium: 115 Chest x-ray: Somewhat progressive infiltrates from prior film this morning A: Acute worsening of hypoxic respiratory failure. Now with rales bilaterally, patient acutely decompensating. May represent flash pulmonary edema from blood pressure. Worsening pneumonia in the differential, as is pending sepsis. P: Diuresis with furosemide PRN hydralazine for blood pressure BiPAP support Was code activated?: No - CC Time CC start date: 11/21/19 CC start time: 14:50 CC end date: 11/21/19 CC end time: 15:25 CC total mins: 35 (Separate critical care E/M services from initial history and physical, due to abrupt patient change after admission.) Critical care time: 30 - 74 mins
[2019-11-21] MEDS ORDERED: SODIUM CHLORIDE 3 % 500 ML IV SCH ×2 (18:00→20:53)
[2019-11-21] MEDS: CLOPIDOGREL 75 MG TABLET PO SCH (20:36)
[2019-11-21] MEDS: guaiFENesin 600 MG TAB.SR.12H PO SCH (20:37)
[2019-11-21] MEDS: DOCUSATE SODIUM 100 MG CAPSULE PO SCH (20:37)
[2019-11-21] MEDS: CITALOPRAM 20 MG TABLET PO SCH (20:37)
[2019-11-21] MEDS: VERAPAMIL 120 MG TAB.XL.24H PO SCH (20:37)
[2019-11-21] MEDS: FAMOTIDINE 20 MG TABLET PO SCH (20:57)
[2019-11-21] MEDS ORDERED: rOPINIRole 1 MG TABLET PO SCH (21:00)
[2019-11-21] MEDS ORDERED: OXYBUTYNIN CHLORIDE 5 MG TABLET PO SCH (21:00)
[2019-11-21] MEDS ORDERED: traZODone HCL 50 MG TABLET PO SCH (21:00)
[2019-11-21] MEDS: cloNIDine HCL 0.1 MG TABLET PO SCH (23:50)
[2019-11-22 05:14] LABS: Basophils # (Auto) 0.01 K/mcL (0.00-0.30); Basophils % (Auto) 0.1 % (0.0-2.0); Eosinophils # (Auto) 0 K/mcL (0.00-0.70); Eosinophils % (Auto) 0 % (0.0-7.0); Granulocytes % (Auto) 91.2 % (38.0-78.0); Hematocrit 26.2 % (40.1-51.0); Hemoglobin 8.8 g/dL (13.7-17.5); Lymphocytes # (Auto) 0.56 K/mcL (1.50-4.80); Lymphocytes % (Auto) 3.8 % (15.5-49.0); Mean Cell Volume 84.5 fL (80.0-100.0); Mean Corpuscular HGB Conc 33.6 g/dL (31.0-36.0); Mean Platelet Volume 12.4 fL (7.4-10.4); Monocytes # (Auto) 0.72 K/mcL (0.10-0.90); Monocytes % (Auto) 4.9 % (1.0-12.0); Platelet Count 251 K/mcL (140-440); Red Cell Distribution Width 12.9 % (11.5-14.5); WBC 14.8 K/mcL (4.50-11.00)
[2019-11-22 05:26] LABS: ALT/SGPT 10 U/l (0-40); AST/SGOT 26 U/l (0-37); Albumin 3.5 gm/dL (3.2-5.2); Albumin/Globulin Ratio 1.3 (1.0-2.3); Alkaline Phosphatase 91 U/L (39-117); Bilirubin,Direct 0.2 mg/dL (0.0-0.3); Bilirubin,Total 0.6 mg/dL (0.0-1.0); Blood Urea Nitrogen 34 mg/dl (8-23); Calcium 8.1 mg/dl (8.6-10.4); Carbon Dioxide 24 mmol/L (22-30); Globulin 2.6 gm/dL (2.2-3.7); Glomerular Filtration Rate 26; Glucose 143 mg/dL (70-105); Lactate Dehydrogenase 384 U/L (94-250); Phosphorous 2.5 mg/dL (2.7-4.5); Triglycerides 55 mg/dl (<150); Uric Acid 9.7 mg/dL (2.5-8.0)
[2019-11-22 05:27] LABS: Chloride 81 mmol/L (96-108)
[2019-11-22] MEDS: 0.9 % SODIUM CHLORIDE 10 ML SYRINGE IV SCH ×2 (05:33→19:50)
[2019-11-22] MEDS: FAMOTIDINE 20 MG TABLET PO SCH (08:53)
[2019-11-22] MEDS: cloNIDine HCL 0.1 MG TABLET PO SCH (08:53)
[2019-11-22] MEDS: VERAPAMIL 120 MG TAB.XL.24H PO SCH (08:53)
[2019-11-22] MEDS: CARVEDILOL 12.5 MG TABLET PO SCH ×3 (08:54→19:52)
[2019-11-22] MEDS: guaiFENesin 600 MG TAB.SR.12H PO SCH (08:54)
[2019-11-22] MEDS: DOCUSATE SODIUM 100 MG CAPSULE PO SCH (08:55)
[2019-11-22] MEDS: CLOPIDOGREL 75 MG TABLET PO SCH (08:55)
[2019-11-22] MEDS: CITALOPRAM 20 MG TABLET PO SCH (08:55)
[2019-11-22] MEDS ORDERED: ENOXAPARIN 30 MG/0.3 ML SYRINGE SQ SCH (09:00)
[2019-11-22] MEDS ORDERED: MULTIVIT,THER IRON,CA,FA & MIN 1 TABLET PO SCH (09:00)
[2019-11-22] MEDS ORDERED: AZITHROMYCIN 500 MG in DEXTROSE 5% IN WATER 250 ML IV SCH (09:00)
[2019-11-22] MEDS ORDERED: PYRIDOXINE 100 MG TABLET PO SCH (09:00)
[2019-11-22] MEDS ORDERED: cefTRIAXone 1 GM VIAL IV SCH (09:00)
[2019-11-22] MEDS ORDERED: ISOSORBIDE MONONITRATE 20 MG TABLET PO SCH (09:00)
[2019-11-22] MEDS ORDERED: MAGNESIUM OXIDE 400 MG TABLET PO SCH (09:00)
[2019-11-22] MEDS ORDERED: OXYBUTYNIN CHLORIDE 5 MG TABLET PO SCH (09:00)
[2019-11-22] MEDS ORDERED: GEMFIBROZIL 600 MG TABLET PO SCH (09:00)
[2019-11-22] MEDS: ACETAMINOPHEN 325 MG TABLET PO PRN (09:57)
[2019-11-22] MEDS ORDERED: cefTRIAXone 1 GM in DEXTROSE 5% IN WATER 50 ML IV SCH (10:00)
[2019-11-22] MEDS ORDERED: SODIUM CHLORIDE 3 % 500 ML IV SCH (11:15)
--- NOTE | 2019-11-22 12:02 | Internal Med Progress Note ---
Medical - PN: Subj Patient information: Note initiated : 11/22/19 at 11:59 am Service Date, if different from initiated Date: [] Patient: Kaden Romero 79 y/o M admitted on 11/21/19 for shortness of breath. Chief Complaint: [] Interval history: Mr. Romero is a 79 year old M with a history of CKD, hypertension, restless leg syndrome who presents with progressive dyspnea. Patient's past history is significant for a hospitalization with hyper tension back in August at which time multiple liver masses were found. 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 Post biopsy, the patient did have some abdominal pain which had resolved. He left the biopsy with a sore throat which has worsened and developed into a cough as well as dyspnea. He was seen by his PCP and had a rapid strep was negative. His cough has persisted and is been productive intermittently of yellow/holbrook phlegm. He has not had fever, but feels cold. He also has some pain in his chest with coughing. His is heard him wheezing. During this time he is also had progressive dyspnea. He also feels is difficult to take a deep breath secondary to abdominal bloating. He presents to the ED for evaluation. Patient is also noted post biopsy has become constipated and has had increased bloating. He has had decreased bowel movements. He had post biopsy pain which is resolved, he did not use opioids for pain control. He has had no nausea or vomiting. His is also noted that he has had a poor appetite that is been progressively worse since August. He has had decreased oral intake and last week or so an increased amount of free water. He was recently started on potassium tablets, is picked them up but has not started taking them yet. In the emergency department, the patient was hypoxic with room air sats of 85% in triage. Chest radiograph reveals worsening bilateral airspace disease as compared to a film from last January. Procalcitonin was mildly elevated 0.27, white count normal at 10,000. Patient improved slightly after DuoNeb, but with findings of pneumonia and hypoxia will be admitted for further treatment. Subsequently on day of admission, patient with abrupt decline in respiratory status associated with hypertension. Required BiPAP, was diuresed. 3/2 Has intermittently required BiPAP. Changing to nasal cannula from facemask, oxygen got turned off and room air saturations fell to 70%. Came back up with nasal cannula, subsequently short period of BiPAP. Burkett was attempted yesterday afternoon, could not be placed. Got urine return, but pain with balloon inflation. Eventually was straight cathed overnight for 600 mL urine. Patient's PCP called asking for CT of chest abdomen pelvis for staging of newly diagnosed sarcoma in the liver. - Constitutional Vitals: Vital Signs Temp Pulse Resp BP Pulse Ox 97.8 F 67 26 H 156/88 94 11/22/19 08:01 11/22/19 09:44 11/22/19 09:44 11/22/19 08:01 11/22/19 09:44 Period Temp Pulse Resp BP Sys/Thacker Pulse Ox Last 24 Hr 97.7 F-99.6 F 60-84 20-32 120-216/68-128 86-98 Intake and Output 11/21/19 11/22/19 11/22/19 21:59 05:59 13:59 Intake Total 689 Output Total 190 650 1 Balance 499 -650 -1 Weight 208 lb 4.8 oz Intake & Output: Intake & Output 11/21/19 11/22/19 11/22/19 21:59 05:59 13:59 Intake Total 689 Output Total 190 650 1 Balance 499 -650 -1 Weight 208 lb 4.8 oz Intake: IV 89 Sodium Chloride 3% 500 ml @ 30 89 mls/hr IV Q16H BRENDA Rx#: [id number] Oral 600 Output: Urine Catheter Amount 140 550 Straight 550 Void Amount 50 100 # of times incontinent of urine 1 Other: Meal Dinner Percent of Meal Consumed 100% Urine Appearance Clear Urine Color Bright Yellow Urine Odor Normal Exam: General: Sitting up, looks mildly uncomfortable Chest: Crackles and scattered rhonchi, few end expiratory wheezes, respirations mildly labored Cardiovascular: Regular, no murmur Abdomen: Mildly distended, soft, nontender Neuro: Alert, oriented x3, moves all extremities equally Medical - PN: Obj Da - Labs CBC & Chem 7: 11/22/19 03:56 11/22/19 08:57 Labs: Abnormal Lab Results 11/22/19 11/22/19 11/22/19 08:57 03:56 03:56 WBC 14.8 H RBC 3.10 L Hgb 8.8 L Hct 26.2 L MPV 12.4 H Gran % 91.2 H Lymph % (Auto) 3.8 L Gran # 13.51 H Lymph # (Auto) 0.56 L Kleberg # (Auto) Sodium 118 L* 119 L* Potassium Chloride 81 L BUN 34 H Creatinine 2.3 H Glucose 143 H Osmolality Uric Acid 9.7 H Calcium 8.1 L Phosphorus 2.5 L Lactate Dehydrogenase 384 H 11/21/19 11/21/19 11/21/19 23:50 20:00 16:00 WBC RBC Hgb Hct MPV Gran % Lymph % (Auto) Gran # Lymph # (Auto) Kleberg # (Auto) Sodium 116 L* 116 L* 112 L* Potassium Chloride BUN Creatinine Glucose Osmolality Uric Acid Calcium Phosphorus Lactate Dehydrogenase 11/21/19 11/21/19 11/21/19 12:11 08:10 08:10 WBC RBC Hgb Hct MPV Gran % Lymph % (Auto) Gran # Lymph # (Auto) Kleberg # (Auto) Sodium 115 L* 119 L* Potassium 3.0 L Chloride 80 L BUN 30 H Creatinine 2.2 H Glucose 114 H Osmolality 260 L Uric Acid Calcium 8.3 L Phosphorus Lactate Dehydrogenase 11/21/19 08:10 WBC RBC 3.11 L Hgb 9.1 L Hct 26.2 L MPV 12.1 H Gran % 83.7 H Lymph % (Auto) 6.6 L Gran # 9.01 H Lymph # (Auto) 0.71 L Kleberg # (Auto) 0.97 H Sodium Potassium Chloride BUN Creatinine Glucose Osmolality Uric Acid Calcium Phosphorus Lactate Dehydrogenase Meds: Medications Acetaminophen (Tylenol) 650 mg PO Q6HP PRN; Protocol PRN Reason: Per Pain Protocol/Fever > 101 Last Admin: 11/22/19 09:57 Dose: 650 mg Documented by: Albuterol/Ipratropium (Duoneb) 3 ml NEB Q4HP PRN PRN Reason: Dyspnea Last Admin: 11/21/19 15:23 Dose: 3 ml Documented by: Carvedilol (Coreg) 25 mg PO BIDCC [facility] Last Admin: 11/22/19 08:54 Dose: 25 mg Documented by: Carvedilol (Coreg) 25 mg PO ONCE [facility] Last Admin: 11/21/19 14:17 Dose: 25 mg Documented by: Ceftriaxone Sodium (Rocephin) 1 gm IV DAILY [facility] Last Admin: 11/22/19 08:56 Dose: 1 gm Documented by: Citalopram Hydrobromide (Celexa) 20 mg PO BID [facility] Last Admin: 11/22/19 08:55 Dose: 20 mg Documented by: Clonidine HCl (Catapres) 0.1 mg PO BID [facility] Last Admin: 11/22/19 08:53 Dose: 0.1 mg Documented by: Clopidogrel Bisulfate (Plavix) 37.5 mg PO BID [facility] Last Admin: 11/22/19 08:55 Dose: 37.5 mg Documented by: Docusate Sodium (Colace) 100 mg PO BID [facility] Last Admin: 11/22/19 08:55 Dose: 100 mg Documented by: Enoxaparin Sodium (Lovenox) 30 mg SQ DAILY [facility] Last Admin: 11/22/19 08:56 Dose: 30 mg Documented by: Famotidine (Pepcid) 20 mg PO BID [facility] Last Admin: 11/22/19 08:53 Dose: 20 mg Documented by: Gemfibrozil (Lopid) 150 mg PO DAILY [facility] Last Admin: 11/22/19 09:00 Dose: 150 mg Documented by: Guaifenesin (Mucinex) 600 mg PO BID [facility] Last Admin: 11/22/19 08:54 Dose: 600 mg Documented by: Azithromycin 500 mg/ Dextrose 250 mls @ 250 mls/hr IV DAILY [facility]; Protocol Stop: 11/23/19 09:59 Last Admin: 11/22/19 10:54 Dose: 250 mls/hr Documented by: Sodium Chloride (Sodium Chloride 3%) 500 mls @ 20 mls/hr IV Q24H [facility] Iron Carb/Multivit/Poultry Trimmer/Folic Acid (Multivitamin W/Minerals) 1 tab PO DAILY [facility] Last Admin: 11/22/19 08:53 Dose: 1 tab Documented by: Isosorbide Mononitrate (Monoket) 20 mg PO QDAY [facility] Last Admin: 11/22/19 11:21 Dose: 20 mg Documented by: Lactulose (Cephulac) 10 gm PO DAILYP PRN PRN Reason: Constipation Magnesium Hydroxide (Milk Of Magnesia) 30 ml PO DAILYP PRN PRN Reason: Constipation Magnesium Oxide (Magnesium Oxide) 400 mg PO DAILY [facility] Last Admin: 11/22/19 08:53 Dose: 400 mg Documented by: Ondansetron HCl (Zofran) 4 mg IV Q4HP PRN; Protocol PRN Reason: Nausea And Vomiting Oxybutynin Chloride (Ditropan) 5 mg PO [facility] Last Admin: 11/21/19 20:57 Dose: 5 mg Documented by: Oxybutynin Chloride (Ditropan) 10 mg PO DAILY [facility] Last Admin: 11/22/19 09:56 Dose: 10 mg Documented by: Pyridoxine HCl (Vitamin B-6) 100 mg PO DAILY [facility] Last Admin: 11/22/19 08:54 Dose: 100 mg Documented by: Ropinirole HCl (Requip) 1 - 2 mg PO [facility] Last Admin: 11/21/19 20:58 Dose: 1 mg Documented by: Senna (Senokot) 2 tab PO [facility] PRN PRN Reason: Constipation Sodium Biphosphate/Sodium Phosphate (Fleets Adult) 1 dose NV Q3DP PRN PRN Reason: Constipation Sodium Chloride (Saline Flush) 10 ml IV Q8 [facility] Last Admin: 11/22/19 05:33 Dose: 10 ml Documented by: Trazodone HCl (Desyrel) 50 mg PO [facility] Last Admin: 11/21/19 20:57 Dose: 50 mg Documented by: Verapamil HCl (Calan Sr) 120 mg PO BID [facility] Last Admin: 11/22/19 08:53 Dose: 120 mg Documented by: Medical - PN: A/P - Time Spent With Patient Total time spent is greater than 50% in coordination of care (as documented) at patient's floor/unit and/or counseling patient: Greater than 35 minutes - Narrative A/P Narrative: 79-year-old male presenting with progressive dyspnea and productive cough. #Pneumonia. Patient with bilateral infiltrates. Procalcitonin mildly elevated suggesting bacterial infection, initial normal white count, up to 14,000 today. He has had subjective fevers and chills. Last hospitalized in early August, did have an outpatient biopsy, but suspect community-acquired or aspiration. #Hyponatremia. Serum sodium 119 at presentation. Started on normal saline, fell to 115 though received hypotonic antibiotics. Subsequently 112. Now on 3% saline. Rapid correction to 116 at 30 mL/HR, have been on 10 mL/Hr and stable overnight. The patient has decreased oral intake and increased free water. Suspect hypovolemic hyponatremia. Urine sodium suggests hypovolemia and not SIADH #Acute hypoxic respiratory failure. Intermittently requiring BiPAP. Getting CT scan to stage IV liver cancer, will check for extent of pulmonary disease. Unable to get contrast due to CKD. #Hypokalemia. May be diuretic related. Patient has not started taking his potassium supplements #CKD. Creatinine actually appears improved over past few readings. #Hypertension. Was on minoxidil for a while, medications have been adjusted by nephrology. History of hyperkalemia while on anti-renin/cyn meds #Restless leg syndrome. Generally takes 2 ropinirole at bedtime, 2 further if not effective. #Sarcomahigh-grade smooth muscle differentiatedon recent liver biopsy. Getting CT of chest abdomen pelvis for staging today. Plan: Continue ceftriaxone and azithromycin Follow-up cultures Follow-up report of CT chest/abdomen/pelvis Serial sodiums, next at 1500 hrs. DuoNeb Guaifenesin Flutter valve BiPAP as needed Consider V/Q scan if still with significant hypoxia Continue home antihypertensives CODE STATUS: Full code Prophylaxis: Heparin Medical - PN: Qual - VTE Deep Vein Thrombosis/Pulmonary Embolism Present on Admission: No
[2019-11-22] MEDS ORDERED: rOPINIRole 1 MG TABLET PO PRN (12:28)
--- NOTE | 2019-11-22 12:43 | Cat Scan Report ---
History: Staging newly diagnosed hepatic sarcoma. TECHNIQUE: The patient was imaged without intravenous contrast (as ordered) from the thoracic inlet through the symphysis pubis. Sagittal and coronal reformats were created along with axial MIPS images of the chest. The radiation exposure was limited using dose reduction technology. FINDINGS: CHEST: There is a severe mosaic pattern of groundglass alveolar opacities throughout both lungs. These were present on prior studies done in 01/25/2019 and 02/16/2019. However, the disease process has progressed greater involvement now in both lungs. Addition there is a zone of densely consolidated lung parenchyma in the superior segment of the left lower lobe with air bronchograms. There is no apparent underlying mass in this region. Patient has small bilateral layering pleural effusions which have increased in volume. The trachea and central airways appear normal. The heart is normal in size. There are a few scattered calcified plaques in the coronary arteries. No pericardial effusion is present. There is a small aortic arch. It Measures approximate 1 cm in depth and 3 cm in length. This has not enlarged since 2019. There are several distal trachea measures 1.8 cm. Some of these have enlarged one or 2 mm since 01/25/19. Bone windows show no lytic or blastic metastasis in the chest. There is arthritis in the thoracic spine and there is an old healed mild wedge compression fracture involving the superior endplate of T6. Abdomen and pelvis: Evaluation of abdominal organs without contrast is limited. The liver is normal in size. There is a subtle areas of decreased attenuation laterally in segment seven of the right lobe. This could be the clinically described sarcoma. This was much better seen on the prior ultrasound performed on 11/21/19. Ultrasound also revealed a lesion in the left lobe which cannot be identified on today's CT scan. The spleen is normal size and homogeneous. The gallbladder is been removed. The bile ducts are nondilated. There is no apparent mass or inflammation the pancreas. The adrenals are normal. Kidneys are both relatively small is no hydronephrosis, cyst or mass effect in either kidney. A moderate amount calcified plaque is present along the wall normal caliber abdominal aorta. 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 No intraperitoneal hemorrhage or ascites are present. The prostate is absent. There is fecal impaction in the rectum. A few noninflamed diverticula are seen in the sigmoid colon. Small bowel is nondilated. The bone windows reveal degenerative disc disease and arthritis at multiple levels in the lumbar spine with an associated mild scoliotic curvature. No lytic or blastic metastasis are seen. IMPRESSION: Worsening widespread groundglass alveolar opacities in both lungs. This may be seen with radiation pneumonitis, drug reaction, chronic eosinophilic pneumonia, usual interstitial pneumonia, infection, cryptogenic organizing pneumonia and many other uncommon etiologies. Dense consolidation in the superior segment left lower lobe which is probably pneumonia or atelectasis. Small but enlarging bilateral pleural effusions Nonspecific mediastinal adenopathy Nonvisualization of the numerous hepatic masses seen on recent ultrasound No evidence of distant metastasis Interpreted and Authenticated by: Colin Palomo 11/22/19
[2019-11-22] MEDS ORDERED: VERAPAMIL 120 MG TAB.XL.24H PO ONE (13:47)
--- NOTE | 2019-11-22 14:15 | Internal Med Progress Note ---
Medical - PN: Subj Patient information: Note initiated : 11/22/19 at 2:13 pm Service Date, if different from initiated Date: [] Patient: Kaden Romero 79 y/o M admitted on 11/21/19 for shortness of breath. Chief Complaint: [] Interval history: Mr. Romero is a 79 year old M with a history of CKD, hypertension, restless leg syndrome who presents with progressive dyspnea. Patient's past history is significant for a hospitalization with hyper tension back in August at which time multiple liver masses were found. 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 Post biopsy, the patient did have some abdominal pain which had resolved. He left the biopsy with a sore throat which has worsened and developed into a cough as well as dyspnea. He was seen by his PCP and had a rapid strep was negative. His cough has persisted and is been productive intermittently of yellow/holbrook phlegm. He has not had fever, but feels cold. He also has some pain in his chest with coughing. His is heard him wheezing. During this time he is also had progressive dyspnea. He also feels is difficult to take a deep breath secondary to abdominal bloating. He presents to the ED for evaluation. Patient is also noted post biopsy has become constipated and has had increased bloating. He has had decreased bowel movements. He had post biopsy pain which is resolved, he did not use opioids for pain control. He has had no nausea or vomiting. His is also noted that he has had a poor appetite that is been progressively worse since August. He has had decreased oral intake and last week or so an increased amount of free water. He was recently started on potassium tablets, is picked them up but has not started taking them yet. In the emergency department, the patient was hypoxic with room air sats of 85% in triage. Chest radiograph reveals worsening bilateral airspace disease as compared to a film from last January. Procalcitonin was mildly elevated 0.27, white count normal at 10,000. Patient improved slightly after DuoNeb, but with findings of pneumonia and hypoxia will be admitted for further treatment. Subsequently on day of admission, patient with abrupt decline in respiratory status associated with hypertension. Required BiPAP, was diuresed. 3/ Has intermittently required BiPAP. Changing to nasal cannula from facemask, oxygen got turned off and room air saturations fell to 70%. Came back up with nasal cannula, subsequently short period of BiPAP. Burkett was attempted yesterday afternoon, could not be placed. Got urine return, but pain with balloon inflation. Eventually was straight cathed overnight for 600 mL urine. Patient's PCP called asking for CT of chest abdomen pelvis for staging of newly diagnosed sarcoma in the liver. - Constitutional Vitals: Vital Signs Temp Pulse Resp BP Pulse Ox 99 F 68 22 123/77 96 11/22/19 12:01 11/22/19 10:00 11/22/19 12:01 11/22/19 12:01 11/22/19 12:01 Period Temp Pulse Resp BP Sys/Thacker Pulse Ox Last 24 Hr 97.8 F-99.2 F 60-84 20-32 120-216/68-128 83-98 Intake and Output 11/22/19 11/22/19 11/22/19 05:59 13:59 21:59 Intake Total 250 Output Total 650 1 Balance -650 249 Weight 94.483 kg Patient Weight 11/23/19 05:59 Weight 94.483 kg Intake & Output: Intake & Output 11/22/19 11/22/19 11/22/19 05:59 13:59 21:59 Intake Total 250 Output Total 650 1 Balance -650 249 Weight 94.483 kg Intake: IV 250 Zithromax 500 mg In Dextrose 5% 250 in Water 250 ml @ 250 mls/hr IV DAILY [facility] Rx#:[id number] Output: Urine Catheter Amount 550 Straight 550 Void Amount 100 # of times incontinent of urine 1 Exam: General: Alert, Awake, No acute Distress Eyes/N/T: EOMI, Head/Neck: neck supple, CV: RRR, No murmurs, normal s1/s2 Pulm: b/l rales/rhonchi, mild b/l exp wheezing Abd: soft, mildly distended, nontender, +BS x4 Ext: no clubbing/cyanosis/edema Neuro: Alert, no focal deficits, moves all extremities, Skin: warm/dry Medical - PN: Obj Da - Labs CBC & Chem 7: 11/22/19 03:56 11/22/19 08:57 Labs: Abnormal Lab Results 11/22/19 11/22/19 11/22/19 08:57 03:56 03:56 WBC 14.8 H RBC 3.10 L Hgb 8.8 L Hct 26.2 L MPV 12.4 H Gran % 91.2 H Lymph % (Auto) 3.8 L Gran # 13.51 H Lymph # (Auto) 0.56 L Beltrami # (Auto) Sodium 118 L* 119 L* Potassium Chloride 81 L BUN 34 H Creatinine 2.3 H Glucose 143 H Osmolality Uric Acid 9.7 H Calcium 8.1 L Phosphorus 2.5 L Lactate Dehydrogenase 384 H 11/21/19 11/21/19 11/21/19 23:50 20:00 16:00 WBC RBC Hgb Hct MPV Gran % Lymph % (Auto) Gran # Lymph # (Auto) Beltrami # (Auto) Sodium 116 L* 116 L* 112 L* Potassium Chloride BUN Creatinine Glucose Osmolality Uric Acid Calcium Phosphorus Lactate Dehydrogenase 11/21/19 11/21/19 11/21/19 12:11 08:10 08:10 WBC RBC Hgb Hct MPV Gran % Lymph % (Auto) Gran # Lymph # (Auto) Beltrami # (Auto) Sodium 115 L* 119 L* Potassium 3.0 L Chloride 80 L BUN 30 H Creatinine 2.2 H Glucose 114 H Osmolality 260 L Uric Acid Calcium 8.3 L Phosphorus Lactate Dehydrogenase 11/21/19 08:10 WBC RBC 3.11 L Hgb 9.1 L Hct 26.2 L MPV 12.1 H Gran % 83.7 H Lymph % (Auto) 6.6 L Gran # 9.01 H Lymph # (Auto) 0.71 L Beltrami # (Auto) 0.97 H Sodium Potassium Chloride BUN Creatinine Glucose Osmolality Uric Acid Calcium Phosphorus Lactate Dehydrogenase Meds: Medications Acetaminophen (Tylenol) 650 mg PO Q6HP PRN; Protocol PRN Reason: Per Pain Protocol/Fever > 101 Last Admin: 11/22/19 09:57 Dose: 650 mg Documented by: Albuterol/Ipratropium (Duoneb) 3 ml NEB Q4HP PRN PRN Reason: Dyspnea Last Admin: 11/21/19 15:23 Dose: 3 ml Documented by: Carvedilol (Coreg) 25 mg PO BIDCC [facility] Last Admin: 11/22/19 08:54 Dose: 25 mg Documented by: Carvedilol (Coreg) 25 mg PO ONCE [facility] Last Admin: 11/21/19 14:17 Dose: 25 mg Documented by: Ceftriaxone Sodium (Rocephin) 1 gm IV DAILY [facility] Last Admin: 11/22/19 08:56 Dose: 1 gm Documented by: Citalopram Hydrobromide (Celexa) 20 mg PO BID [facility] Last Admin: 11/22/19 08:55 Dose: 20 mg Documented by: Clonidine HCl (Catapres) 0.1 mg PO BID [facility] Last Admin: 11/22/19 08:53 Dose: 0.1 mg Documented by: Clopidogrel Bisulfate (Plavix) 37.5 mg PO BID [facility] Last Admin: 11/22/19 08:55 Dose: 37.5 mg Documented by: Docusate Sodium (Colace) 100 mg PO BID [facility] Last Admin: 11/22/19 08:55 Dose: 100 mg Documented by: Enoxaparin Sodium (Lovenox) 30 mg SQ DAILY [facility] Last Admin: 11/22/19 08:56 Dose: 30 mg Documented by: Famotidine (Pepcid) 20 mg PO BID [facility] Last Admin: 11/22/19 08:53 Dose: 20 mg Documented by: Gemfibrozil (Lopid) 150 mg PO DAILY [facility] Last Admin: 11/22/19 09:00 Dose: 150 mg Documented by: Guaifenesin (Mucinex) 600 mg PO BID [facility] Last Admin: 11/22/19 08:54 Dose: 600 mg Documented by: Azithromycin 500 mg/ Dextrose 250 mls @ 250 mls/hr IV DAILY [facility]; Protocol Stop: 11/23/19 09:59 Last Infusion: 11/22/19 11:55 Dose: Infused Documented by: Sodium Chloride (Sodium Chloride 3%) 500 mls @ 20 mls/hr IV Q24H [facility] Iron Carb/Multivit/[place]/Folic Acid (Multivitamin W/Minerals) 1 tab PO DAILY [facility] Last Admin: 11/22/19 08:53 Dose: 1 tab Documented by: Isosorbide Mononitrate (Monoket) 20 mg PO QDAY [facility] Last Admin: 11/22/19 11:21 Dose: 20 mg Documented by: Lactulose (Cephulac) 10 gm PO DAILYP PRN PRN Reason: Constipation Magnesium Hydroxide (Milk Of Magnesia) 30 ml PO DAILYP PRN PRN Reason: Constipation Magnesium Oxide (Magnesium Oxide) 400 mg PO DAILY [facility] Last Admin: 11/22/19 08:53 Dose: 400 mg Documented by: Ondansetron HCl (Zofran) 4 mg IV Q4HP PRN; Protocol PRN Reason: Nausea And Vomiting Oxybutynin Chloride (Ditropan) 5 mg PO HS [facility] Last Admin: 11/21/19 20:57 Dose: 5 mg Documented by: Oxybutynin Chloride (Ditropan) 10 mg PO DAILY [facility] Last Admin: 11/22/19 09:56 Dose: 10 mg Documented by: Pyridoxine HCl (Vitamin B-6) 100 mg PO DAILY [facility] Last Admin: 11/22/19 08:54 Dose: 100 mg Documented by: Ropinirole HCl (Requip) 1 - 2 mg PO HS [facility] Last Admin: 11/21/19 20:58 Dose: 1 mg Documented by: Ropinirole HCl (Requip) 1 mg PO TIDP PRN PRN Reason: other Last Admin: 11/22/19 12:51 Dose: 1 mg Documented by: Senna (Senokot) 2 tab PO HSP PRN PRN Reason: Constipation Sodium Biphosphate/Sodium Phosphate (Fleets Adult) 1 dose RI Q3DP PRN PRN Reason: Constipation Sodium Chloride (Saline Flush) 10 ml IV Q8 [facility] Last Admin: 11/22/19 05:33 Dose: 10 ml Documented by: Trazodone HCl (Desyrel) 50 mg PO HS [facility] Last Admin: 11/21/19 20:57 Dose: 50 mg Documented by: Verapamil HCl (Calan Sr) 120 mg PO BID [facility] Last Admin: 11/22/19 08:53 Dose: 120 mg Documented by: Medical - PN: A/P - Time Spent With Patient Total time spent is greater than 50% in coordination of care (as documented) at patient's floor/unit and/or counseling patient: - Narrative A/P Narrative: A: *PNA (b/l and dense MARLENY): Procalcitonin mildly elevated suggesting bacterial in fection, initial normal white count, up to 14,000 today. -He has had subjective fevers and chills. -Last hospitalized in early August, did have an outpatient biopsy, but suspect community-acquired or aspiration. *Hyponatremia: Serum sodium 119 at presentation. Started on normal saline, fell to 115 though received hypotonic antibiotics. Subsequently 112. -Now on 3% saline. Rapid correction to 116 at 30 mL/HR, have been on 10 mL/Hr and stable overnight. The patient has decreased oral intake and increased free water. -Suspect hypovolemic hyponatremia. Urine sodium suggests hypovolemia and not SIADH *Acute hypoxic respiratory failure: Intermittently requiring BiPAP. -CT chest with widespread groundglass alveolar opacities b/l and dense MARLENY *Hypokalemia: May be diuretic related. Patient has not started taking his potassium supplements *CKD IV: Creatinine actually appears improved over past few readings. -follows with dr. Henriquez *HTN: Was on minoxidil for a while, medications have been adjusted by nephrology. History of hyperkalemia while on anti-renin/cyn meds *Restless leg syndrome. Generally takes 2 ropinirole at bedtime, 2 further if not effective. *Sarcomahigh-grade smooth muscle differentiatedon recent liver biopsy. Getting CT of chest abdomen pelvis for staging today. -Follows with Dr. Starkey -no evidence of distant mets on CT c/a/p Plan: Continue ceftriaxone and azithromycin Follow-up cultures on 3%, Serial sodiums. DuoNeb Guaifenesin Flutter valve, BiPAP as needed check ABG Continue home antihypertensives CODE STATUS: Full code Prophylaxis: Heparin Medical - PN: Qual - VTE Deep Vein Thrombosis/Pulmonary Embolism Present on Admission: No
[2019-11-22] MEDS ORDERED: 0.9 % SODIUM CHLORIDE 250 ML IV SCH (15:00)
[2019-11-22] MEDS ORDERED: NOREPINEPHRINE BITARTRATE 16 MG in 0.9 % SODIUM CHLORIDE 234 ML IV SCH (15:00)
[2019-11-22 16:52] LABS: Anisocytosis 1+ (NONE SEEN); Band Neutrophils % 4 % (0-10); Hypochromasia 1+ (NONE SEEN); Lymphocytes % 3 % (15-49); Monocytes % (Manual) 2 % (1-12); Ovalocytes 1+ (NONE SEEN); Platelet Estimate NORMAL (NORMAL); Polychromasia 2+ (NONE SEEN); RBC Morphology ABNORM (NORMAL); Segmented Neutrophils % 91 % (38-78)
[2019-11-22] MEDS ORDERED: VASOPRESSIN 20 UNIT in DEXTROSE 5% IN WATER 99 ML IV SCH (17:00)
--- NOTE | 2019-11-22 19:42 | Event Note ---
TYESHA AHN called on this patient at about 5:15 PM. ED physician and staff responded to code. See ED physician note for details Patient developed bradycardia and then subsequent PEA. Patient was coded for about 10 minutes until code stopped by family. Likely respiratory leading to cardiac arrest. Likely ARDS. A: *PNA (b/l and dense MARLENY): Procalcitonin mildly elevated suggesting bacterial infection, initial normal white count, up to 14,000 today. -He has had subjective fevers and chills. -Last hospitalized in early August, did have an outpatient biopsy, but suspect community-acquired or aspiration. *Hyponatremia: Serum sodium 119 at presentation. Started on normal saline, fell to 115 though received hypotonic antibiotics. Subsequently 112. -Now on 3% saline. Rapid correction to 116 at 30 mL/HR, have been on 10 mL/Hr and stable overnight. The patient has decreased oral intake and increased free water. -Suspect hypovolemic hyponatremia. Urine sodium suggests hypovolemia and not SIADH *Acute hypoxic respiratory failure: Intermittently requiring BiPAP. -CT chest with widespread groundglass alveolar opacities b/l and dense MARLENY *Hypokalemia: May be diuretic related. Patient has not started taking his potassium supplements *CKD IV: Creatinine actually appears improved over past few readings. -follows with dr. Henriquez *HTN: Was on minoxidil for a while, medications have been adjusted by nephrology. History of hyperkalemia while on anti-renin/cyn meds *Restless leg syndrome. Generally takes 2 ropinirole at bedtime, 2 further if not effective. *Sarcomahigh-grade smooth muscle differentiatedon recent liver biopsy. Getting CT of chest abdomen pelvis for staging today. -Follows with Dr. Starkey -no evidence of distant mets on CT c/a/p Plan: Continue ceftriaxone and azithromycin Follow-up cultures on 3%, Serial sodiums. DuoNeb Guaifenesin Flutter valve, BiPAP as needed check ABG Continue home antihypertensives CODE STATUS: Full code Prophylaxis: Heparin
[2019-11-22] MEDS ORDERED: EPINEPHrine 1 MG/ML ML IV ONE (22:24)
[2019-11-22] MEDS ORDERED: ATROPINE SULFATE 1 MG/10 ML SYRINGE IV ONE (22:24)
[2019-11-23] MEDS ORDERED: VASOPRESSIN IV SCH (01:00)
[2019-11-23] MEDS ORDERED: SODIUM CHLORIDE 0.9% IV SCH (01:00)
--- NOTE | 2019-11-23 02:01 | Emergency Department Note ---
ED Note Addendum Note Addendum: This 79-year-old gentleman was admitted 2 days previously with bilateral lower lobe patchy infiltrates that were significantly worsened from previously; his clinical status had worsened over the subsequent 48 hours. During the day today he had been on 2 pressor support IV medications in ICU and intermittent BiPAP with persistent hypoxia and shortness of breath. At 1915 hrs. a CODE BLUE was called overhead and I arrived within 1-2 minutes. Chest compressions were already initiated prior to my arrival. Bagging was also initiated thereafter with oxygen. Patient prior to the code being called had become apneic and bradycardia down to asystole and went into PEA. Shortly after my arrival epinephrine was giveny. Pulse check at 191 demonstrated again no pulses and PEA. Additional epinephrine was given at 1919 and at 1922 hours. Some degree of ventilatory resistance was reported by respiratory therapist while bagging but on chest auscultation there seemed to be good and adequate expansion and airflow; the colorimetric CO2 indicator was yellow. The Marbin compression machine was also initiated and was functioning positively and well. There was no clinical response or change in the patient's status. Additional fluids were given. I discussed with patient's , who was in the room, his poor prognosis and circumstances, that we could continue but that there were certainly likelihood of long-term challenges and difficulties if he were successfully resuscitated. She chose for the code to be discontinued - believing that this would be most compatible with what would be best. Code was stopped at 1924. Patient exhibited again PEA. He had persisting agonal small short breaths at 5-20 second intervals over the next at least 10 minutes. Machinery was removed and patient's was at his bedside accompanied by staff with attempts to console her and her grief. I spoke thereafter spoke with Dr. Stevenson, hospitalist, who had arrived, and who is very familiar with this patient. He indicates that he will complete the [place] state certificate and final summary.
[2019-11-23] MEDS ORDERED: AZITHROMYCIN 500 MG in 0.9 % SODIUM CHLORIDE 250 ML IV ONE (09:00)
--- NOTE | 2019-11-23 09:38 | Death Note ---
Discharge Sum: Prov - Provider Patient information: Note initiated : 11/23/19 at 9:36 am Service Date, if different from initiated Date: [] Patient: Kaden Romero 79 y/o M admitted on 11/21/19 for shortness of breath. Chief Complaint: [] Primary care physician: Estevan Carter Consults: 11/21/19 Consult to Physician [CONS] Stat Comment: Consulting Provider: Lesley Cervantes Reason For Exam: Physician to Consult 11/22/19 17:14 Consult to Physician [CONS] Routine Comment: hypnatremia, ckd Consulting Provider: Joanna Martinez Reason For Exam: Physician to Consult Discharge Sum: Summary - Date and Time Date of admission: 11/21/19 11:56 Date of : 11/22/19 Time of : 19:25 - Summary Details: Mr. Romero is a 79 year old M with a history of CKD, hypertension, restless leg syndrome who presents with progressive dyspnea. Patient's past history is significant for a hospitalization with hyper tension back in August at which time multiple liver masses were found. 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 Post biopsy, the patient did have some abdominal pain which had resolved. He left the biopsy with a sore throat which has worsened and developed into a cough as well as dyspnea. He was seen by his PCP and had a rapid strep was negative. His cough has persisted and is been productive intermittently of yellow/holbrook phlegm. He has not had fever, but feels cold. He also has some pain in his chest with coughing. His is heard him wheezing. During this time he is also had progressive dyspnea. He also feels is difficult to take a deep breath secondary to abdominal bloating. He presents to the ED for evaluation. Patient is also noted post biopsy has become constipated and has had increased bloating. He has had decreased bowel movements. He had post biopsy pain which is resolved, he did not use opioids for pain control. He has had no nausea or vomiting. His is also noted that he has had a poor appetite that is been progressively worse since August. He has had decreased oral intake and last week or so an increased amount of free water. He was recently started on potassium tablets, is picked them up but has not started taking them yet. In the emergency department, the patient was hypoxic with room air sats of 85% in triage. Chest radiograph reveals worsening bilateral airspace disease as compared to a film from last January. Procalcitonin was mildly elevated 0.27, white count normal at 10,000. Patient improved slightly after DuoNeb, but with findings of pneumonia and hypoxia will be admitted for further treatment. Subsequently on day of admission, patient with abrupt decline in respiratory status associated with hypertension. Required BiPAP, was diuresed. / Has intermittently required BiPAP. Changing to nasal cannula from facemask, oxygen got turned off and room air saturations fell to 70%. Came back up with nasal cannula, subsequently short period of BiPAP. Burkett was attempted yesterday afternoon, could not be placed. Got urine return, but pain with balloon inflation. Eventually was straight cathed overnight for 600 mL urine. Patient's PCP called asking for CT of chest abdomen pelvis for staging of newly diagnosed sarcoma in the liver. TYESHA AHN called on this patient at about 5:15 PM. ED physician and staff responded to code. See ED physician note for details Patient developed bradycardia and then subsequent PEA. Patient was coded for about 10 minutes until code stopped by family. Likely respiratory leading to cardiac arrest. Likely ARDS. Per ED note:" ED Note Addendum Note Addendum: This 79-year-old gentleman was admitted 2 days previously with bilateral lower lobe patchy infiltrates that were significantly worsened from previously; his clinical status had worsened over the subsequent 48 hours. During the day today he had been on 2 pressor support IV medications in ICU and intermittent BiPAP with persistent hypoxia and shortness of breath. At 1915 hrs. a TYESHA AHN was called overhead and I arrived within 1-2 minutes. Chest compressions were already initiated prior to my arrival. Bagging was also initiated thereafter with oxygen. Patient prior to the code being called had become apneic and bradycardia down to asystole and went into PEA. Shortly after my arrival epinephrine was giveny. Pulse check at 1918 demonstrated again no pulses and PEA. Additional epinephrine was given at 0 and at 1923 hours. Some degree of ventilatory resistance was reported by respiratory therapist while bagging but on chest auscultation there seemed to be good and adequate expansion and airflow; the colorimetric CO2 indicator was yellow. The Marbin compression machine was also initiated and was functioning positively and well. There was no clinical response or change in the patient's status. Additional fluids were given. I discussed with patient's , who was in the room, his poor prognosis and circumstances, that we could continue but that there were certainly likelihood of long-term challenges and difficulties if he were successfully resuscitated. She chose for the code to be discontinued - believing that this would be most compatible with what would be best. Code was stopped at 1925. Patient exhibited again PEA. He had persisting agonal small short breaths at 5-20 second intervals over the next at least 10 minutes. Mach inery was removed and patient's was at his bedside accompanied by staff with attempts to console her and her grief. I spoke thereafter spoke with Dr. Stevenson, hospitalist, who had arrived, and who is very familiar with this patient. He indicates that he will complete the [facility] certificate and final summary." A: *PNA (b/l and dense MARLENY) with ARDS: Procalcitonin mildly elevated suggesting bacterial infection, initial normal white count, up to 14,000 today. -He has had subjective fevers and chills. -Last hospitalized in early August, did have an outpatient biopsy, but suspect community-acquired or aspiration. *Hyponatremia: Serum sodium 119 at presentation. Started on normal saline, fell to 115 though received hypotonic antibiotics. Subsequently 112. -Now on 3% saline. Rapid correction to 116 at 30 mL/HR, have been on 10 mL/Hr and stable overnight. The patient has decreased oral intake and increased free water. -Suspect hypovolemic hyponatremia. Urine sodium suggests hypovolemia and not SIADH *Acute hypoxic respiratory failure: Intermittently requiring BiPAP. -CT chest with widespread groundglass alveolar opacities b/l and dense MARLENY *Hypokalemia: May be diuretic related. Patient has not started taking his potassium supplements *CKD IV: Creatinine actually appears improved over past few readings. -follows with dr. Henriquez *HTN: Was on minoxidil for a while, medications have been adjusted by nephrology. History of hyperkalemia while on anti-renin/cyn meds *Restless leg syndrome. Generally takes 2 ropinirole at bedtime, 2 further if not effective. *Sarcomahigh-grade smooth muscle differentiatedon recent liver biopsy. Getting CT of chest abdomen pelvis for staging today. -Follows with Dr. Starkey -no evidence of distant mets on CT c/a/p - Additional Data Attending physician: Lesley Cervantes
== END 2019-11-22 22:25 | disposition expired | DRG 193 ==
LOC: ED 07:36 → ICU 11:56
PROVIDERS: ADMIT Internal Medicine; ATTEND Internal Medicine